=== PATIENT | male | born 1950 | race African-American/Black ===

== ENCOUNTER 2016-12-16 07:07 | Emergency (ER) | payer MEDICARE, OTHER ==
[~2016-12-16] VITALS: Ht 185.4 cm; Wt 81.6 kg
[2016-12-16 07:10] VITALS: BP 153/79
[2016-12-16] MEDS ORDERED: HYDR-971 PO (07:32)
--- NOTE | 2016-12-16 07:32 | PHYS DOC ---
Past Medical History Past Medical History: Anxiety, High Cholesterol, Hypertension, Other Additional Past Medical Histor: PTSD, MOOD DISORDER, CHRONIC PAIN Past Surgical History: Other Additional Past Surgical Histo: cardiac cath with no stent placement Alcohol Use: Heavy Drug Use: None Adult General Chief Complaint Chief Complaint: HIP PAIN HPI HPI Patient is a 66 year old male with a history of hypertension and PTSD, as well as chronic left hip pain presents the emergency room today with a complaint of ongoing left hip pain. Patient states that he was seen by his primary care provider at the [facility] 2 days ago received an injection in his hip. He states that the pain has been persistent and somewhat worse since that period of time. He denies any redness or swelling to his left hip. He denies any fevers, chills, myalgias. Patient was here approximately one year ago with the same complaint. He states that he has not seen an unattended ground sensor specialist as of yet for his ongoing left hip pain. Patient denies any additional concerns at this time. Review of Systems Review of Systems Constitutional: Denies fever or chills [] Eyes: Denies change in visual acuity, redness, or eye pain [] HENT: Denies nasal congestion or sore throat [] Respiratory: Denies cough or shortness of breath [] Cardiovascular: No additional information not addressed in HPI [] GI: Denies abdominal pain, nausea, vomiting, bloody stools or diarrhea [] : Denies dysuria or hematuria [] Musculoskeletal: Denies back pain or joint pain [] Integument: Denies rash or skin lesions [] Neurologic: Denies headache, focal weakness or sensory changes [] Endocrine: Denies polyuria or polydipsia [] Allergies Allergies Allergies Coded Allergies Type Severity Reaction Last Updated Verified trazodone Allergy Intermediate 01/18/16 Yes Physical Exam Physical Exam Constitutional: Well developed, well nourished, no acute distress, non-toxic appearance. Patient's physiologic vital signs are normal. HENT: Normocephalic, atraumatic, bilateral external ears normal, oropharynx moist, no oral exudates, nose normal. [] Eyes: PERRLA, EOMI, conjunctiva normal, no discharge. [] Neck: Normal range of motion, no tenderness, supple, no stridor. [] Cardiovascular:Heart rate regular rhythm, no murmur [] Lungs & Thorax: Bilateral breath sounds clear to auscultation [] Abdomen: Bowel sounds normal, soft, no tenderness, no masses, no pulsatile masses. [] Skin: Warm, dry, no erythema, no rash. [] Back: No tenderness, no CVA tenderness. [] Extremities: Left hip is normal in appearance. The overlying skin is without erythema or swelling. Patient's tenderness to palpation to the anterior lateral aspect of his left hip. There is no palpable defect or deformity. Patient's hip is stable. Patient complains of increased pain with circumduction. There is mild crepitation in the left hip upon circumduction. Flexion and extension is intact. Patient's left lower extremity is warm and dry. Neurovascularly intact with capillary refill less than 2 seconds in status. Neurologic: Alert and oriented X 3, normal motor function, normal sensory function, no focal deficits noted. [] Psychologic: Affect normal, judgement normal, mood normal. [] Current Patient Data Vital Signs Vital Signs Date Time Temp Pulse Resp B/P Pulse Ox O2 Delivery O2 Flow Rate FiO2 12/16/16 07:10 98.1 80 18 98 Room Air 98.1 EKG EKG [] Radiology/Procedures Radiology/Procedures [] Course & Med Decision Making Course & Med Decision Making Pertinent Labs and Imaging studies reviewed. (See chart for details) [] Dragon Disclaimer Dragon Disclaimer This electronic medical record was generated, in whole or in part, using a voice recognition dictation system. Departure Departure Impression: Primary Impression: Hip pain, chronic Disposition: 01 HOME, SELF-CARE Condition: GOOD Referrals: NO PCP (PCP) Patient Instructions: Chronic Pain, Osteoarthritis Additional Instructions: 1. Take the medication as prescribed. Do not take any additional acetaminophen while taking the pain medication. Take the pain medication only for moderate to severe pain. 2. Review the discharge instructions provided for self-care and reasons to return to the emergency department. 3. Follow-up with your primary care provider at the [facility] and discuss referral to orthopedic service for further evaluation of your hip pain. Scripts Hydrocodone/Apap 5-325 ([place] 5-325 Tablet)1 Each Tablet1 Tab PO PRN Q6HRS PRN PAIN #15 TAB Prov:KANDI COONEY 12/16/16 KANDI COONEY December 16, 2016 07:32
== END 2016-12-16 07:37 | disposition home or self-care (01) ==
LOC: ER 07:07
DX: G89.29 Other chronic pain (principal); M25.552 Pain in left hip; I10 Essential (primary) hypertension; F43.10 Post-traumatic stress disorder, unspecified; F41.9 Anxiety disorder, unspecified; E78.00 Pure hypercholesterolemia, unspecified; F39 Unspecified mood [affective] disorder; F10.10 Alcohol abuse, uncomplicated; Y90.9 Presence of alcohol in blood, level not specified; Z88.8 Allergy status to other drugs, medicaments and biological substances
CPT/HCPCS: 99283

== ENCOUNTER 2016-12-19 06:46 | Emergency (ER) | payer MEDICARE ==
[~2016-12-19] VITALS: Ht 185.4 cm; Wt 81.6 kg
[~2016-12-19 06:46] MED LIST: HYDR-971 PO
[2016-12-19] MEDS ORDERED: MORPHINE SULFATE 10 MG/ML VIAL. IM ONE (07:15)
[2016-12-19] MEDS ORDERED: KETOROLAC TROMETHAMINE 60 MG/2 ML INJ. IM ONE (07:15)
[2016-12-19] MEDS ORDERED: DEXAMETHASONE SOD PHOS 20 MG/5 ML VIAL. IM ONE (07:15)
[2016-12-19] MEDS ORDERED: METH4TAB2 PO (07:24)
--- NOTE | 2016-12-19 07:25 | PHYS DOC ---
Past Medical History Past Medical History: Anxiety, High Cholesterol, Hypertension, Other Additional Past Medical Histor: PTSD, MOOD DISORDER, CHRONIC PAIN Past Surgical History: Other Additional Past Surgical Histo: cardiac cath with no stent placement Alcohol Use: Heavy Drug Use: None Adult General Chief Complaint Chief Complaint: HIP PAIN HPI HPI Patient is a 66 year old male with history of hypertension, high cholesterol, anxiety, chronic left hip pain, who presents today with exacerbation of chronic left hip pain since yesterday. Patient states yesterday he went to a baseball game. He states he walked for quite some time. Patient states when he got home he had exacerbation of his chronic left hip pain. He states he was seen at the [place] at the beginning of the week and joint injection in his hip. He states he was in the ED 3 days ago for hip pain and was given hydrocodone for pain. He states the hydrocodone is not helping. Patient states he has an appointment with the [place] orthopedic doctor on 04 Jan 2017. Patient denies any injury. Review of Systems Review of Systems Constitutional: Denies fever or chills [] Eyes: Denies change in visual acuity, redness, or eye pain [] : Denies dysuria or hematuria [] Musculoskeletal: Left hip pain Integument: Denies rash or skin lesions [] Neurologic: Denies headache, focal weakness or sensory changes [] Endocrine: Denies polyuria or polydipsia [] Current Medications Current Medications Current Medications Medications (Trade) Dose Ordered Sig/Taiwo Start Time Stop Time Status Last Admin Dose Admin Dexamethasone Sodium Phosphate (Decadron) 10 mg 1X ONCE 12/19/16 07:15 12/19/16 07:16 UNV Ketorolac Tromethamine (Toradol Im) 60 mg 1X ONCE 12/19/16 07:15 12/19/16 07:16 UNV Morphine Sulfate 5 mg 1X ONCE 12/19/16 07:15 12/19/16 07:16 UNV Allergies Allergies Allergies Coded Allergies Type Severity Reaction Last Updated Verified trazodone Allergy Intermediate 01/18/16 Yes Physical Exam Physical Exam Constitutional: Well developed, well nourished, no acute distress, non-toxic appearance. [] HENT: Normocephalic, atraumatic, bilateral external ears normal, oropharynx moist, no oral exudates, nose normal. [] Eyes: PERRLA, EOMI, conjunctiva normal, no discharge. [] Abdomen: Bowel sounds normal, soft, no tenderness, no masses, no pulsatile masses. [] Skin: Warm, dry, no erythema, no rash. [] Back: No tenderness, no CVA tenderness. [] Extremities: Left hip with no obvious deformity. Tenderness diffusely on palpation of the left posterior hip. Full range of motion to the left hip. Adequate internal rotation and external rotation of the left hip. Adequate flexion and extension of the left lower extremity. +2 left pedal pulse. Cap refill less than 2 seconds the left lower extremity. Sensation intact to the left lower extremity. Neurologic: Alert and oriented X 3, normal motor function, normal sensory function, no focal deficits noted. [] Psychologic: Affect normal, judgement normal, mood normal. [] Current Patient Data Vital Signs Vital Signs Date Time Temp Pulse Resp B/P (MAP) Pulse Ox O2 Delivery O2 Flow Rate FiO2 12/19/16 07:05 97.2 80 18 181/87 (118) 100 Room Air 97.2 EKG EKG [] Radiology/Procedures Radiology/Procedures [] Course & Med Decision Making Course & Med Decision Making Pertinent Labs and Imaging studies reviewed. (See chart for details) Patient is in the ED with exacerbation of chronic left hip pain. He'll be given Toradol, morphine, and Decadron IM in the ED. He has pain medicine at home. Gave him a prescription of Medrol Dosepak. Follow-up with his own doctor as soon as he can. Dragon Disclaimer Dragon Disclaimer This electronic medical record was generated, in whole or in part, using a voice recognition dictation system. Departure Departure Impression: Primary Impression: Hip pain, chronic Disposition: 01 HOME, SELF-CARE Condition: STABLE Referrals: NO PCP (PCP) MARQUES PIERCE MD Follow-up in one week Patient Instructions: Hip Pain Additional Instructions: You were seen for exacerbation of chronic hip pain. Please take the prescribed medicines as ordered. Continue taking your hydrocodone at home as needed as well as an [facility] Follow-up with your doctor at the [place] as soon as possible or the doctor we provide. He is an orthopedic doctor. Scripts Methylprednisolone (MEDROL) 4 Mg Tab.ds.pk 1 PKG PO UD, #1 PKG Prov: HERVE SAHU METER TECHNICIAN 12/19/16 Problem Qualifiers Primary Impression: Hip pain, chronic Laterality: left Qualified Codes: M25.552 - Pain in left hip; G89.29 - Other chronic pain HERVE SAHU APRN December 19, 2016 07:25
[2016-12-19 08:20] VITALS: BP 158/80
[2016-12-20] MEDS ORDERED: QUET25TA5 PO (22:27)
[2016-12-20] MEDS ORDERED: MELO-156 PO (22:27)
[2016-12-20] MEDS ORDERED: OMEP20TA PO (22:27)
[2016-12-20] MEDS ORDERED: LISI-334 PO (22:27)
[2016-12-20] MEDS ORDERED: AMLO10TA2 PO (22:27)
[2016-12-20] MEDS ORDERED: MULT1CAP15 PO (22:27)
== END 2016-12-19 08:20 | disposition home or self-care (01) ==
LOC: ER 06:46
DX: G89.29 Other chronic pain (principal); M25.552 Pain in left hip; F41.9 Anxiety disorder, unspecified; E78.00 Pure hypercholesterolemia, unspecified; I10 Essential (primary) hypertension; F43.10 Post-traumatic stress disorder, unspecified; F10.10 Alcohol abuse, uncomplicated; Z88.5 Allergy status to narcotic agent
CPT/HCPCS: 96372; 99284; J1100; J1885; J2270

== ENCOUNTER 2016-12-20 16:06 | Inpatient (IN) | payer MEDICARE ==
[~2016-12-20] VITALS: Ht 185.4 cm; Wt 82.3 kg
[~2016-12-20 16:06] MED LIST changes: +METH4TAB2 PO
[2016-12-20 17:03] LABS: BASO % 0 % (0-3); EOS % 0 % (0-3); HEMATOCRIT 30.9 % (39.0-53.0); HEMOGLOBIN 10.3 g/dL (13.0-17.5); LYMPH # 1.4 x10^3/uL (1.0-4.8); LYMPH % 9 % (24-48); MEAN CORPUSCULAR HEMOGLOBIN 27 pg (25-35); MEAN CORPUSCULAR HGB CONC 33 g/dL (31-37); MEAN CORPUSCULAR VOLUME 82 fL (79-100); MONO % 7 % (0-9); NEUT % 84 % (31-73); PLATELET COUNT 282 x10^3/uL (140-400); RED BLOOD COUNT 3.78 x10^6/uL (4.30-5.70); RED CELL DISTRIBUTION WIDTH 16.3 % (11.5-14.5); WHITE BLOOD COUNT 15.1 x10^3/uL (4.0-11.0)
[2016-12-20] MEDS ORDERED: IV NORMAL SALINE 1000ML BAG 1,000 ML IV SCH (17:15)
[2016-12-20 17:22] LABS: PLT ESTIMATE ADEQUATE (ADEQUATE); POLYCHROMASIA SLIGHT
[2016-12-20 17:39] LABS: ALBUMIN 3.5 g/dL (3.4-5.0); CALCIUM 8.3 mg/dL (8.5-10.1); CREATININE 2.4 mg/dL (0.7-1.3); DIRECT BILIRUBIN 0.2 mg/dL (0.0-0.2); MAGNESIUM 2.1 mg/dL (1.8-2.4); TOTAL BILIRUBIN 0.6 mg/dL (0.2-1.0); TOTAL PROTEIN 7.1 g/dL (6.4-8.2)
[2016-12-20 17:47] LABS: POTASSIUM 6.5 mmol/L (3.5-5.1)
[2016-12-20] MEDS ORDERED: SODIUM POLYSTYRENE SULFONATE 15 GM/60 ML ORAL.SUSP. PO ONE (18:15)
--- NOTE | 2016-12-20 20:23 | PHYS DOC ---
Past Medical History Past Medical History: Anxiety, High Cholesterol, Hypertension, Other Additional Past Medical Histor: PTSD, MOOD DISORDER, CHRONIC PAIN Past Surgical History: Other Additional Past Surgical Histo: cardiac cath with no stent placement Alcohol Use: Heavy Drug Use: None Adult General Chief Complaint Chief Complaint: DIZZY/LIGHT HEADED HPI HPI Patient is a 66 year old male who presents to the ED with the complaint of dizzy, weak, and low blood pressure. Patient states that about 1 or 1-1/2 weeks ago, his doctor put him on amlodipine for blood pressure. He has been taking lisinopril for hypertension for a long time and has not had any problems with it. Over the last few weeks, he is been suffering from hip pain, it's unclear to me whether he has sciatica or some type of DJD problem in his hip. When he saw his doctor about 1-1/2 weeks ago for a visit, he is his hip was bothering him a lot. His blood pressure was elevated and his doctor added amlodipine to his regimen. He began taking this as prescribed and took a dose of his antihypertensives this morning sometime before noon. He was seen here yesterday with hip pain and was given a prescription for Medrol Dosepak and [place] which he has been taking, states that his hip pain is much better today. Ever since he got up this morning, he is been dizzy. His checked his blood pressure a few times and he brings in a record of several blood pressures with systolics in the 90-100 range. He said that's low for him. He denies chest pain, shortness of air, denies vomiting or diarrhea, denies any blood in his stool or black stools. He has not had any other new medications other than those mentioned above. He's never had an episode like this before. He denies history of slow heart rate or atrial fibrillation. Review of Systems Review of Systems Constitutional: Denies fever or chills [] Eyes: Denies change in visual acuity, redness, or eye pain [] HENT: Denies nasal congestion or sore throat [] Respiratory: Denies cough or shortness of breath [] Cardiovascular: Denies chest pain GI: Denies abdominal pain, nausea, vomiting, bloody stools or diarrhea [] : Denies dysuria or hematuria [] Musculoskeletal: Denies back pain or joint pain [] Integument: Denies rash or skin lesions [] Neurologic: Denies headache, focal weakness or sensory changes [] Current Medications Current Medications Current Medications Medications (Trade) Dose Ordered Sig/Taiwo Start Time Stop Time Status Last Admin Dose Admin Sodium Polystyrene Sulfonate (Kayexalate) 15 gm 1X ONCE 12/20/16 18:15 12/20/16 18:16 DC 12/20/16 18:27 15 GM Sodium Chloride 1,000 ml @ 1,000 mls/hr Q1H 12/20/16 17:15 12/20/16 18:14 DC 12/20/16 17:14 1,000 MLS/HR Allergies Allergies Allergies Coded Allergies Type Severity Reaction Last Updated Verified trazodone Allergy Intermediate 01/18/16 Yes Physical Exam Physical Exam Constitutional: Well developed, well nourished, no acute distress, non-toxic appearance. Alert, mentating normally, does not appear clinically hypotensive. HENT: Normocephalic, atraumatic, bilateral external ears normal, nose normal. [ ] Eyes: conjunctiva normal, no discharge. [] Neck: Normal range of motion, no stridor. [] Cardiovascular:Heart rate regular bradycardia approximately 40, no murmur Lungs & Thorax: Bilateral breath sounds clear to auscultation [] Abdomen: Bowel sounds normal, soft, no tenderness, no masses, no pulsatile masses. [] Skin: Warm, dry, no erythema, no rash. [] Extremities: No tenderness, no cyanosis, no clubbing, ROM intact, no edema. [] Neurologic: Alert and oriented X 3, normal motor function, normal sensory function, no focal deficits noted. [] Current Patient Data Vital Signs Vital Signs Date Time Temp Pulse Resp B/P (MAP) Pulse Ox O2 Delivery O2 Flow Rate FiO2 12/20/16 20:00 42 108/62 (77) 97 Room Air 12/20/16 16:17 98.0 18 98.0 Lab Values Laboratory Tests Test 12/20/16 16:35 White Blood Count 15.1 x10^3/uL (4.0-11.0) H Red Blood Count 3.78 x10^6/uL (4.30-5.70) L Hemoglobin 10.3 g/dL (13.0-17.5) L Hematocrit 30.9 % (39.0-53.0) L Mean Corpuscular Volume 82 fL (79-100) Mean Corpuscular Hemoglobin 27 pg (25-35) Mean Corpuscular Hemoglobin Concent 33 g/dL (31-37) Red Cell Distribution Width 16.3 % (11.5-14.5) H Platelet Count 282 x10^3/uL (140-400) Neutrophils (%) (Auto) 84 % (31-73) H Lymphocytes (%) (Auto) 9 % (24-48) L Monocytes (%) (Auto) 7 % (0-9) Eosinophils (%) (Auto) 0 % (0-3) Basophils (%) (Auto) 0 % (0-3) Neutrophils # (Auto) 12.7 x10^3uL (1.8-7.7) H Lymphocytes # (Auto) 1.4 x10^3/uL (1.0-4.8) Monocytes # (Auto) 1.0 x10^3/uL (0.0-1.1) Eosinophils # (Auto) 0.0 x10^3/uL (0.0-0.7) Basophils # (Auto) 0.0 x10^3/uL (0.0-0.2) Segmented Neutrophils % 73 % (35-66) H Band Neutrophils % 3 % (0-9) Lymphocytes % 17 % (24-48) L Monocytes % 7 % (0-10) Platelet Estimate Adequate (ADEQUATE) Polychromasia Slight Sodium Level 117 mmol/L (136-145) *L Potassium Level 6.5 mmol/L (3.5-5.1) *H Chloride Level 86 mmol/L (98-107) L Carbon Dioxide Level 23 mmol/L (21-32) Anion Gap 8 (6-14) Blood Urea Nitrogen 29 mg/dL (8-26) H Creatinine 2.4 mg/dL (0.7-1.3) H Estimated GFR (Cockcroft-Gault) 33.0 Glucose Level 126 mg/dL (70-99) H Calcium Level 8.3 mg/dL (8.5-10.1) L Magnesium Level 2.1 mg/dL (1.8-2.4) Total Bilirubin 0.6 mg/dL (0.2-1.0) Direct Bilirubin 0.2 mg/dL (0.0-0.2) Aspartate Amino Transferase (AST) 26 U/L (15-37) Alanine Aminotransferase (ALT) 29 U/L (16-63) Alkaline Phosphatase 59 U/L (46-116) Troponin I Quantitative < 0.017 ng/mL (0.000-0.055) UE-Wyd-A-Type Natriuretic Peptide 2216 pg/mL (0-124) H Total Protein 7.1 g/dL (6.4-8.2) Albumin 3.5 g/dL (3.4-5.0) Laboratory Tests 12/20/16 16:35 Laboratory Tests 12/20/16 16:35 EKG EKG Twelve-lead EKG read by me. There are no P waves. The rhythm is regular. It is likely junctional. It is narrow complex. There are no acute ST or T wave changes indicative of ischemia or infarction. No STEMI. [] Radiology/Procedures Radiology/Procedures [] Course & Med Decision Making Course & Med Decision Making Pertinent Labs and Imaging studies reviewed. (See chart for details) 66-year-old male presents with weakness, hypotension, bradycardia. He did recently start amlodipine about 1 or 1-1/2 weeks ago. Labs remarkable for significant hyponatremia, hyperkalemia, elevated creatinine. I do not know his baseline, he usually gets his medical care at the [place]. His potassium is 6.5 which I'm not sure would cause a junctional rhythm but I did treat him with IV fluids, normal saline, and oral Kayexalate. Patient rested comfortably in the emergency department. He remained bradycardic approximately 38 but he was alert, mentating normally, without complaints while laying in the ED on the cart. I discussed admission to the hospital with him and he is agreeable to that. I discussed the case with Dr. Campos, [facility], who will admit the patient. I wrote bridge orders. She requested a consult with Dr. Juárez, cardiology. Also a consult with nephrology. I discussed the case with Dr. Juárez, who suggested that we give him some more fluids and also IV Lasix for the hyperkalemia, which was done. The patient remained stable and went to the ICU in stable and unchanged condition. [] Dragon Disclaimer Dragon Disclaimer This electronic medical record was generated, in whole or in part, using a voice recognition dictation system. Departure Departure Impression: Primary Impression: Bradycardia Additional Impression: Hyperkalemia Disposition: 09 ADMITTED INPATIENT Admitting Physician: Shu Campos Condition: STABLE Referrals: NO PCP (PCP) Problem Qualifiers VERN PIPER MD December 20, 2016 20:23
[2016-12-20] MEDS ORDERED: IV NORMAL SALINE 1000ML BAG 1,000 ML IV ONE (20:30)
[2016-12-20] MEDS ORDERED: FUROSEMIDE 40 MG/4 ML VIAL. IVP ONE (20:30)
[2016-12-20 21:32] LABS: CALCIUM 7.7 mg/dL (8.5-10.1); CREATININE 2.3 mg/dL (0.7-1.3); GFR 34.7
--- NOTE | 2016-12-20 21:32 | ACF ---
Admission Forms Criteria HYPONATREMIA; HYPERNATREMIA; HYPOKALEMIA; HYPERKALEMIA; HYPOCALCEMIA; HYPERCALCEMIA Clinical Indications for Inpatient Care (Place 'X' for any and all applicable criteria): Ongoing inpatient care may be indicated for ANY ONE of the following [G](1)(2)(3 )(5): [X ]I. Hyponatremia with ANY ONE of the following: [X ]a) Sodium less than 130 mEq/L (mmol/L) (new) (6)(22) [ ]b) Sodium less than 135 mEq/L (mmol/L) with ANY ONE of the following: [ ]i) Severe medical etiology requiring inpatient management (eg, heart failure, hypovolemia) [ ]ii) Altered mental status [ ]iii) Seizures [ ]II. Hypernatremia with ANY ONE of the following: [ ]a) Sodium greater than 155 mEq/L (mmol/L) [ ]b) Sodium greater than 150 mEq/L (mmol/L) with ANY ONE of the following: [ ] i) Altered mental status [ ]ii) Seizures [ ]iii) Severe medical etiology (eg, hypovolemia, diabetes insipidus) [ ]iv) Severe weakness [ ]v) Severe medical etiology (eg, hemolysis, infection, drug overdose) [ ]III. Hypokalemia with ANY ONE of the following: [ ]a) Potassium less than 2.5 mEq/L (mmol/L) despite outpatient and emergency treatment [ ]b) Potassium less than 3.0 mEq/L (mmol/L) with ANY ONE of the following: [ ]i) Weakness [ ]ii) Cardiac abnormality (eg, arrhythmia, conduction disturbance) [ ]iii) Cardiac ischemia [ ]iv) Ileus [ ]v) Ongoing medical cause requiring inpatient management. ( e.g., acute renal wasting, SIADH) [ ]vi) Other severe symptoms [ ] IV. Hyperkalemia with ANY ONE of the following: [ ]a) Potassium greater than 6.5 mEq/L (mmol/L) [ ]b) Potassium greater than 5 mEq/L (mmol/L) with ANY ONE of the following: [ ]i) Severe ECG findings [H] [ ]ii) Acute worsening of renal failure (creatinine greater than 2.5 mg/dL (221 micromoles/L) or significant elevation for age and size) [ ] V. Hypocalcemia with ANY ONE of the following: [ ]a) Calcium less than 7 mg/dL (1.75 mmol/L) despite outpatient and emergency treatment(19) [ ]b) Calcium less than 8 mg/dL (2 mmol/L) with significant symptoms or findings; examples include: [ ]i) Cardiac abnormality (eg, arrhythmia or conduction disturbance) [ ]ii) Altered mental status [ ]iii) Seizures [ ]iv) Breathing difficulty [ ]v) Muscle spasms [ ]. Hypercalcemia with ANY ONE of the following: [ ]a) Calcium greater than 14 mg/dL (3.5 mmol/L) [ ]b) Calcium greater than 12 mg/dL (3 mmol/L) with ANY ONE of the following: [ ]i) Significant dehydration or hypovolemia as indicated by ANY ONE of the following(2): [ ]1. Clinically significant dehydration as indicated by ANY ONE of the following: [ ]A. Acute loss of weight from baseline (5% of body weight in adults, 9% in pediatric patients) [ ]B. Hemodynamic instability [ ]C. Acute renal failure [ ]D. Serum sodium greater than 150 mEq/L (mmol/L) [ ]2) Dehydration that is persistent indicated by ALL of the following: [ ]A. Oral rehydration therapy not tolerated or insufficient to adequately correct dehydration [ ]B. Appropriate intravenous treatment (eg, fluids ) does not readily correct dehydration ie, after 12 to 24 hours of treatment) [ ]ii) Significant symptoms or findings; examples include: [ ]1) Altered mental status [ ]2) Cardiac abnormality (eg, arrhythmia, conduction disturbance) [ ]3) Cardiac abnormality (eg, arrhythmia, conduction disturbance) The original [facility] content created by [facility] has been revised. The portions of the content which have been revised are identified through the use of italic text or in bold, and [facility] has neither reviewed nor approved the modified material. All other unmodified content is copyright [facility] [employer] Please see references footnoted in the original [facility] [employer] edition 2016 Admission Criteria Met?: Yes ULISSES LEPE December 20, 2016 21:32
[2016-12-20 21:41] LABS: POTASSIUM 6.1 mmol/L (3.5-5.1)
[2016-12-20 21:45] VITALS: BP 156/75
[2016-12-20 22:00] VITALS: BP 141/67
[2016-12-20 22:15] VITALS: BP 130/62
[2016-12-20] MEDS ORDERED: MELO-156 PO (22:27)
[2016-12-20] MEDS ORDERED: OMEP20TA PO (22:27)
[2016-12-20] MEDS ORDERED: MULT1CAP15 PO (22:27)
[2016-12-20] MEDS ORDERED: QUET25TA5 PO (22:27)
[2016-12-20] MEDS ORDERED: LISI-334 PO (22:27)
[2016-12-20] MEDS ORDERED: AMLO10TA2 PO (22:27)
[2016-12-20 22:30] VITALS: BP 120/75
[2016-12-20 22:45] VITALS: BP 135/77
[2016-12-20 23:00] VITALS: BP 128/71
[2016-12-21] VITALS (14 sets, daily range): BP systolic 109–150; BP diastolic 57–78
[2016-12-21 06:14] LABS: CALCIUM 8.7 mg/dL (8.5-10.1); CREATININE 1.9 mg/dL (0.7-1.3); GFR 43.3; POTASSIUM 5.3 mmol/L (3.5-5.1)
--- NOTE | 2016-12-21 06:35 | EKG ---
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 Electronically Signed On 12-28-2016 8:47:55 CDT by Doyle Salvador
--- NOTE | 2016-12-21 07:13 | RAD ---
Indication: Hypertension and bradycardia. Time of exam 1704 hours. Correlation is made with prior chest from 02/29/2012. The heart is enlarged. Tiny calcified nodules are seen again noted throughout both lungs. No infiltrates are seen. No effusion or pneumothorax is detected. Impression: No acute cardiopulmonary process is detected.
[2016-12-21 09:23] LABS: BILIRUBIN,URINE NEGATIVE (NEG); GLUCOSE,URINE NEGATIVE (NEG); NITRITE,URINE NEGATIVE (NEG); PROTEIN,URINE 30 mg/dL (NEG-TRACE); UROBILINOGEN,URINE 0.2 mg/dL (0.2 mg/dL)
[2016-12-21] MEDS ORDERED: 0.9 % SODIUM CHLORIDE 10 ML DISP.SYRIN. IV PRN (09:30)
[2016-12-21] MEDS ORDERED: CITA20TA9 PO (09:38)
[2016-12-21 09:48] LABS: BACTERIA,URINE 0 /HPF (0-FEW); RBC,URINE 0 /HPF (0-2); SQUAMOUS EPITHELIAL CELL,UR OCC /LPF; WBC,URINE OCC /HPF (0-4)
[2016-12-21] MEDS ORDERED: NICOTINE POLACRILEX 2MG GUM PACKAGE of 12. BC PRN (10:15)
[2016-12-21] MEDS ORDERED: NON FORMULARY ITEM (Methylprednisolone (Medrol) 1 PKG) PO SCH (10:15)
[2016-12-21] MEDS ORDERED: MORPHINE SULFATE 2 MG/ML DISP.SYRIN. IV ONE (10:45)
[2016-12-21] MEDS ORDERED: MORPHINE SULFATE 2 MG/ML DISP.SYRIN. IM ONE (10:45)
[2016-12-21] MEDS: IV NORMAL SALINE 1000ML BAG 1,000 ML IV SCH ×2 (10:48→22:22)
[2016-12-21] MEDS: methylPREDNISolone 4 MG TABLET. PO SCH ×3 (10:49→17:53)
[2016-12-21] MEDS: PANTOPRAZOLE 40 MG TABLET.DR. PO SCH (10:49)
[2016-12-21] MEDS: MELOXICAM 7.5 MG TABLET PO SCH ×2 (10:49→20:36)
[2016-12-21] MEDS: MULTIVITAMIN I-VITE TABLET. PO SCH (10:49)
[2016-12-21] MEDS: CITALOPRAM 20 MG TABLET. PO SCH (10:50)
[2016-12-21] MEDS: HYDROcodone/APAP 5/325MG 1 TAB TABLET PO PRN ×2 (10:50→17:53)
[2016-12-21] MEDS: LISINOPRIL 20 MG TABLET PO SCH (10:50)
--- NOTE | 2016-12-21 11:32 | RAD ---
Indication: Indication: Abnormal metabolic profile. Axial imaging through the chest was performed without intravenous contrast. No prior studies are available for comparison. No axillary lymphadenopathy is seen. There are calcified lymph nodes in the mediastinum and mel likely from prior granulomatous exposure. No pericardial fluid is identified. There is trace left and small right pleural effusion. Innumerable calcified nodules are identified throughout both lungs consistent with granulomas. Multiple patchy groundglass opacities are noted within bilateral upper lobes, greatest on the left. The lower lobes are unremarkable apart from some mild infiltrate or atelectasis posteriorly in the right lower lobe. The upper abdomen is unremarkable. Impression: Patchy groundglass infiltrates are identified bilateral upper lobes. This likely is on an infectious or inflammatory basis. There are also trace left and small right pleural effusions. PQRS Compliance Statement: One or more of the following individualized dose reduction techniques were utilized for this examination: 1. Automated exposure control 2. Adjustment of the mA and/or kV according to patient size 3. Use of iterative reconstruction technique
--- NOTE | 2016-12-21 11:50 | HP ---
ADMIT DATE: 12/21/16 CHIEF COMPLAINT: Dizziness. HISTORY OF PRESENT ILLNESS: The patient is a 66-year-old -[place] gentleman with past medical history of hypertension and osteoarthritis, who presented to the Emergency Room with sudden onset of dizziness, lightheadedness, and unsteady gait. He relates that he actually was not only at the [facility], but also at the Emergency Room here in the past week with severe left-sided hip pain. With his visit in the ER yesterday, he received Medrol Dosepak and [place], which seemed to address the pain fairly decently. His electrolytes have been checked during his visit. He relates that about 10 days ago, he also started on a new blood pressure medication, Norvasc. He denies any lightheadedness, dizziness before yesterday, but is convinced that Norvasc is at the root of all his issues. In the Emergency Room, he was found with a sodium of 117, potassium at 6.5, creatinine at 2.4 and he was promptly admitted. He received IV fluids, Kayexalate as well as Lasix to address his electrolyte imbalances. Potassium improved to 6.1. In addition, he was found bradycardic in a junctional rhythm, which was attributed to the hyperkalemia. He was admitted to the ICU for further monitoring. PAST MEDICAL HISTORY: Hypertension and osteoarthritis. FAMILY HISTORY: Hypertension, osteoarthritis. Denies any heart disease, denies any kidney disease known in the family. SOCIAL HISTORY: Lives with his , smokes about a pack a day since age 24. Admits to 1 bottle of wine a day. Denies any other drugs. ALLERGIES: TRAZODONE, UNKNOWN REACTION and he denies any allergies. HOME MEDICATIONS: Reconciled with MAR. REVIEW OF SYSTEMS: Lightheadedness/dizziness, now has resolved. He feels perfectly fine and is eager to leave the hospital. PHYSICAL EXAMINATION: VITAL SIGNS: From today show a blood pressure of 141/71, heart rate of 74, respiratory rate at 23. He is afebrile. GENERAL: This is a well-nourished, well-developed, 66-year-old, -[place] gentleman, alert and oriented, in no acute distress. HEENT: Shows no scleral icterus. NECK: Supple, without any lymphadenopathy. LUNGS: Clear to auscultation bilaterally. HEART: Regular rate and rhythm. ABDOMEN: Has positive bowel sounds, soft, nontender. EXTREMITIES: Show no edema. SKIN: Warm, soft and dry without any rash. LABORATORY DATA: CBC with a WBC of 15.1, hemoglobin 10.3, MCV at 82, platelets of 282. Chemistries with a BUN and creatinine currently at 27 and 1.9, at admission 29 and 2.4, sodium of 125 (at admission, 117), potassium 5.3 (6.5), calcium at 8.7. LFTs at admission within normal limits. IMAGING: Chest x-ray shows no acute cardiopulmonary process. ASSESSMENT AND PLAN: The patient is a 66-year-old, -[place], gentleman presenting with hyponatremia, severe as well as hyperkalemia, severe and resulting bradycardia with junctional rhythm. Etiology of abnormality is unclear at this point. With what appears to be [id number] renal insufficiency, we will obtain a consult with a Nephrology (Dr. Ortiz). Cardiology, Dr. Juárez, has been consulted as well. 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 We will continue normal saline drip for the time being. We will obtain additional labs including TSH, lipid profile for cardiology evaluation as well. We will continue his home medications, Norvasc to be added in his hypertension resumes. We will obtain a CT of the chest and echocardiogram to help evaluate cardiac and pulmonary function and rule out potential malignancy as etiology of SIADH. Prophylaxis will be instituted with H2 ruth and heparin. For his substance abuse including tobacco and alcohol, he prefers nicotine gum over patch. We will also start him on Ativan prevention protocol. DIANNA KURTZ MD DR: BLANK/nts JOB#: [id number] / [id number] [place]
[2016-12-21 13:37] LABS: CALCIUM 9.2 mg/dL (8.5-10.1); CREATININE 1.6 mg/dL (0.7-1.3); GFR 52.8; POTASSIUM 4.8 mmol/L (3.5-5.1)
--- NOTE | 2016-12-21 16:04 | PDOC2 ---
CONSULT Date of Consult Date of Consult DATE: 12/21/16 TIME: 15:56 Reason for Consult Reason for Consult: TAMI Referring Physician Referring Physician: JOSEPH Identification/Chief Complaint Chief Complaint THIS IS A 66 YR OLD ADMITTED WITH FEELING POORLY. HE STATES THAT HE FELT DIZZY. ON ADMIT HE IS NOTED TO HAVE HYPONATREMIA, HYPERKALEMIA AND TAMI WITH A CR OF 2.4. NO CKD HX IS REPORTED. HE IS ALSO NOTED TO HAVE BRADYCARDIA. HIS K WAS 6.5 AND HIS NA WAS 117 Source Source: Chart review, Patient History of Present Illness Reason for Visit: ABOVE Past Medical History Cardiovascular: HTN Musculoskeletal: Osteoarthritis Family History Family History: Hypertension Social History 1 pack per day ALCOHOL: heavy Drugs: None Lives: with Family Current Problem List Problem List Problems Medical Problems: (1) Bradycardia Status: Acute (2) Hyperkalemia Status: Acute Current Medications Current Medications Current Medications Sodium Chloride 1,000 ml @ 1,000 mls/hr Q1H IV Last administered on 12/20/16 17:14; Start 12/20/16 at 17:15; Stop 12/20/16 at 18:14; Status DC Sodium Polystyrene Sulfonate (Kayexalate) 15 gm 1X ONCE PO Last administered on 12/20/16 18:27; Start 12/20/16 at 18:15; Stop 12/20/16 at 18:16; Status DC Sodium Chloride 1,000 ml @ 1,000 mls/hr 1X ONCE IV Last administered on 20:26; Start 12/20/16 at 20:30; Stop 12/20/16 at 21:29; Status DC Furosemide (Lasix) 40 mg 1X ONCE IVP Last administered on 12/20/16 20:26; Start 12/20/16 at 20:30; Stop 12/20/16 at 20:31; Status DC Sodium Chloride (Normal Saline Flush) 3 ml QSHIFT PRN IV AFTER MEDS AND BLOOD DRAWS; Start 12/21/16 at 09:30 Citalopram Hydrobromide (CeleXA) 20 mg DAILY PO Last administered on 12/21/16 10:50; Start 12/21/16 at 11:00 Acetaminophen/ Hydrocodone Bitart (Lortab 5/325) 1 tab PRN Q6HRS PRN PO PAIN Last administered on 12/21/16 10:50; Start 12/21/16 at 10:15 Lisinopril (Prinivil) 20 mg DAILY PO Last administered on 12/21/16 10:50; Start 12/21/16 at 11:00 Meloxicam (Mobic) 7.5 mg BID PO Last administered on 12/21/16 10:49; Start 12/21 at 11:00 Quetiapine Fumarate (SEROquel) 25 mg HS PO ; Start 12/21/16 at 21:00 Non-Formulary Medication 1 pkg UD PO ; Start 12/21/16 at 10:15; Status UNV Pantoprazole Sodium (Protonix) 40 mg DAILYAC PO Last administered on 12/21/16 10:49; Start 12/21/16 at 11:00 Multivitamins/ Minerals (I-Anupam) 1 tab DAILY PO Last administered on 12/21/16 10:49; Start 12/21/16 at 11:00 Nicotine Polacrilex (Nicorette Gum) 1 each PRN Q2HR PRN BC SMOKING CESSATION; Start 12/21/16 at 10:15 Morphine Sulfate 1 mg 1X ONCE IM ; Start 12/21/16 at 10:45; Stop 12/21/16 at 10: 45; Status DC Sodium Chloride 1,000 ml @ 100 mls/hr Q10H IV Last administered on 12/21/16 10 :48; Start 12/21/16 at 10:15 Methylprednisolone (Medrol) 4 mg TIDPC PO Last administered on 12/21/16 13:02; Start 12/21/16 at 11:00; Stop 12/21/16 at 17:31 Methylprednisolone (Medrol) 8 mg QHS PO ; Start 12/21/16 at 21:00; Stop 12/21/16 at 21:01 Methylprednisolone (Medrol) 4 mg QIDAFTMEAL PO ; Start 12/22/16 at 09:00; Stop at 21:01 Methylprednisolone (Medrol) 4 mg TID PO ; Start 12/23/16 at 09:00; Stop at 21:01 Methylprednisolone (Medrol) 4 mg BID PO ; Start 12/24/16 at 09:00; Stop at 21:01 Methylprednisolone (Medrol) 4 mg DAILY PO ; Start 12/25/16 at 09:00; Stop at 09:01 Morphine Sulfate 1 mg 1X ONCE IV Last administered on 12/21/16t 10:48; Start at 10:45; Stop 12/21/16 at 10:46; Status DC Active Scripts Active Medrol (Methylprednisolone) 4 Mg Tab.ds.pk 1 Pkg PO UD Ragan 5-325 Tablet (Acetaminophen/Hydrocodone Bitart) 1 Each Tablet 1 Tab PO PRN Q6HRS PRN Reported Celexa (Citalopram Hydrobromide) 20 Mg Tablet 1 Tab PO DAILY Seroquel (Quetiapine Fumarate) 25 Mg Tablet 20 Mg PO HS Omeprazole 20 Mg Tablet.dr 1 Tab PO DAILY Amlodipine Besylate 10 Mg Tablet 10 Mg PO DAILY Lisinopril 20 Mg Tablet 1 Tab PO DAILY Meloxicam 7.5 Mg Tablet 7.5 Mg PO BID Multivitamins (Multivitamin) 1 Each Capsule 1 Each PO Allergies Allergies: Coded Allergies: trazodone (Verified Allergy, Intermediate, 01/18/16) ROS General: YES: Appetite PSYCHOLOGICAL ROS: YES: Anxiety Eyes: Yes Decreased vision HEENT: YES: Heacaches Respiratory: YES: Cough Gastrointestinal: Yes Constipation Genitourinary: YES Retention, YES Other (NOCTURIA) Musculoskeletal: Yes Muscular Weakness Physical Exam General: Alert, Oriented X3, Cooperative, No acute distress HEENT: Atraumatic, PERRLA Lungs: Clear to auscultation, Normal air movement Heart: Regular rate Abdomen: Soft, No tenderness Neuro: Normal speech, Cranial nerves 3-12 NL Psych/Mental Status: Mental status NL, Mood NL MUSCULOSKELETAL: No deformity Vitals VITALS Vital Signs Date Time Temp Pulse Resp B/P (MAP) Pulse Ox O2 Delivery O2 Flow Rate FiO2 12/21/16 12:30 95 Room Air 12/21/16 12:00 98.9 67 20 127/78 (94) 98.9 12/21/16 06:00 2.0 Labs Labs Laboratory Tests Test 12/20/16 16:16 12/20/16 16:35 12/20/16 20:40 12/20/16 22:13 Urine Collection Type Unknown Urine Color Yellow Urine Clarity Cloudy Urine pH 5.0 Urine Specific [place] 1.020 Urine Protein 30 mg/dL (NEG-TRACE) Urine Glucose (UA) Negative mg/dL (NEG) Urine Ketones (Stick) Negative mg/dL (NEG) Urine Blood Negative (NEG) Urine Nitrite Negative (NEG) Urine Bilirubin Negative (NEG) Urine Urobilinogen Dipstick 0.2 mg/dL (0.2 mg/dL) Urine Leukocyte Esterase Negative (NEG) Urine RBC 0 /HPF (0-2) Urine WBC Occ /HPF (0-4) Urine Squamous Epithelial Cells Occ /LPF Urine Bacteria 0 /HPF (0-FEW) Urine Hyaline Casts Many /HPF Urine Mucus Slight /LPF White Blood Count 15.1 x10^3/uL (4.0-11.0) Red Blood Count 3.78 x10^6/uL (4.30-5.70) Hemoglobin 10.3 g/dL (13.0-17.5) Hematocrit 30.9 % (39.0-53.0) Mean Corpuscular Volume 82 fL (79-100) Mean Corpuscular Hemoglobin 27 pg (25-35) Mean Corpuscular Hemoglobin Concent 33 g/dL (31-37) Red Cell Distribution Width 16.3 % (11.5-14.5) Platelet Count 282 x10^3/uL (140-400) Neutrophils (%) (Auto) 84 % (31-73) Lymphocytes (%) (Auto) 9 % (24-48) Monocytes (%) (Auto) 7 % (0-9) Eosinophils (%) (Auto) 0 % (0-3) Basophils (%) (Auto) 0 % (0-3) Neutrophils # (Auto) 12.7 x10^3uL (1.8-7.7) Lymphocytes # (Auto) 1.4 x10^3/uL (1.0-4.8) Monocytes # (Auto) 1.0 x10^3/uL (0.0-1.1) Eosinophils # (Auto) 0.0 x10^3/uL (0.0-0.7) Basophils # (Auto) 0.0 x10^3/uL (0.0-0.2) Segmented Neutrophils % 73 % (35-66) Band Neutrophils % 3 % (0-9) Lymphocytes % 17 % (24-48) Monocytes % 7 % (0-10) Platelet Estimate Adequate (ADEQUATE) Polychromasia Slight Sodium Level 117 mmol/L (136-145) 120 mmol/L (136-145) Potassium Level 6.5 mmol/L (3.5-5.1) 6.1 mmol/L (3.5-5.1) Chloride Level 86 mmol/L (98-107) 89 mmol/L (98-107) Carbon Dioxide Level 23 mmol/L (21-32) 22 mmol/L (21-32) Anion Gap 8 (6-14) 9 (6-14) Blood Urea Nitrogen 29 mg/dL (8-26) 31 mg/dL (8-26) Creatinine 2.4 mg/dL (0.7-1.3) 2.3 mg/dL (0.7-1.3) Estimated GFR (Cockcroft-Gault) 33.0 34.7 Glucose Level 126 mg/dL (70-99) 119 mg/dL (70-99) Calcium Level 8.3 mg/dL (8.5-10.1) 7.7 mg/dL (8.5-10.1) Magnesium Level 2.1 mg/dL (1.8-2.4) Total Bilirubin 0.6 mg/dL (0.2-1.0) Direct Bilirubin 0.2 mg/dL (0.0-0.2) Aspartate Amino Transf (AST/SGOT) 26 U/L (15-37) Alanine Aminotransferase (ALT/SGPT) 29 U/L (16-63) Alkaline Phosphatase 59 U/L (46-116) Troponin I Quantitative < 0.017 ng/mL (0.000-0.055) ZG-Cra-F-Type Natriuretic Peptide 2216 pg/mL (0-124) Total Protein 7.1 g/dL (6.4-8.2) Albumin 3.5 g/dL (3.4-5.0) Nasal Screen MRSA (PCR) Negative (Negative) Test 12/21/16 05:35 12/21/16 13:15 Sodium Level 125 mmol/L (136-145) 129 mmol/L (136-145) Potassium Level 5.3 mmol/L (3.5-5.1) 4.8 mmol/L (3.5-5.1) Chloride Level 93 mmol/L (98-107) 95 mmol/L (98-107) Carbon Dioxide Level 24 mmol/L (21-32) 24 mmol/L (21-32) Anion Gap 8 (6-14) 10 (6-14) Blood Urea Nitrogen 27 mg/dL (8-26) 26 mg/dL (8-26) Creatinine 1.9 mg/dL (0.7-1.3) 1.6 mg/dL (0.7-1.3) Estimated GFR (Cockcroft-Gault) 43.3 52.8 Glucose Level 101 mg/dL (70-99) 121 mg/dL (70-99) Calcium Level 8.7 mg/dL (8.5-10.1) 9.2 mg/dL (8.5-10.1) Thyroid Stimulating Hormone (TSH) 0.338 uIU/mL (0.358-3.74) Laboratory Tests Test 12/20/16 16:16 12/20/16 16:35 12/20/16 20:40 12/20/16 22:13 Urine Collection Type Unknown Urine Color Yellow Urine Clarity Cloudy Urine pH 5.0 Urine Specific [place] 1.020 Urine Protein 30 mg/dL (NEG-TRACE) Urine Glucose (UA) Negative mg/dL (NEG) Urine Ketones (Stick) Negative mg/dL (NEG) Urine Blood Negative (NEG) Urine Nitrite Negative (NEG) Urine Bilirubin Negative (NEG) Urine Urobilinogen Dipstick 0.2 mg/dL (0.2 mg/dL) Urine Leukocyte Esterase Negative (NEG) Urine RBC 0 /HPF (0-2) Urine WBC Occ /HPF (0-4) Urine Squamous Epithelial Cells Occ /LPF Urine Bacteria 0 /HPF (0-FEW) Urine Hyaline Casts Many /HPF Urine Mucus Slight /LPF White Blood Count 15.1 x10^3/uL (4.0-11.0) Red Blood Count 3.78 x10^6/uL (4.30-5.70) Hemoglobin 10.3 g/dL (13.0-17.5) Hematocrit 30.9 % (39.0-53.0) Mean Corpuscular Volume 82 fL (79-100) Mean Corpuscular Hemoglobin 27 pg (25-35) Mean Corpuscular Hemoglobin Concent 33 g/dL (31-37) Red Cell Distribution Width 16.3 % (11.5-14.5) Platelet Count 282 x10^3/uL (140-400) Neutrophils (%) (Auto) 84 % (31-73) Lymphocytes (%) (Auto) 9 % (24-48) Monocytes (%) (Auto) 7 % (0-9) Eosinophils (%) (Auto) 0 % (0-3) Basophils (%) (Auto) 0 % (0-3) Neutrophils # (Auto) 12.7 x10^3uL (1.8-7.7) Lymphocytes # (Auto) 1.4 x10^3/uL (1.0-4.8) Monocytes # (Auto) 1.0 x10^3/uL (0.0-1.1) Eosinophils # (Auto) 0.0 x10^3/uL (0.0-0.7) Basophils # (Auto) 0.0 x10^3/uL (0.0-0.2) Segmented Neutrophils % 73 % (35-66) Band Neutrophils % 3 % (0-9) Lymphocytes % 17 % (24-48) Monocytes % 7 % (0-10) Platelet Estimate Adequate (ADEQUATE) Polychromasia Slight Sodium Level 117 mmol/L (136-145) 120 mmol/L (136-145) Potassium Level 6.5 mmol/L (3.5-5.1) 6.1 mmol/L (3.5-5.1) Chloride Level 86 mmol/L (98-107) 89 mmol/L (98-107) Carbon Dioxide Level 23 mmol/L (21-32) 22 mmol/L (21-32) Anion Gap 8 (6-14) 9 (6-14) Blood Urea Nitrogen 29 mg/dL (8-26) 31 mg/dL (8-26) Creatinine 2.4 mg/dL (0.7-1.3) 2.3 mg/dL (0.7-1.3) Estimated GFR (Cockcroft-Gault) 33.0 34.7 Glucose Level 126 mg/dL (70-99) 119 mg/dL (70-99) Calcium Level 8.3 mg/dL (8.5-10.1) 7.7 mg/dL (8.5-10.1) Magnesium Level 2.1 mg/dL (1.8-2.4) Total Bilirubin 0.6 mg/dL (0.2-1.0) Direct Bilirubin 0.2 mg/dL (0.0-0.2) Aspartate Amino Transf (AST/SGOT) 26 U/L (15-37) Alanine Aminotransferase (ALT/SGPT) 29 U/L (16-63) Alkaline Phosphatase 59 U/L (46-116) Troponin I Quantitative < 0.017 ng/mL (0.000-0.055) JF-Qja-Q-Type Natriuretic Peptide 2216 pg/mL (0-124) Total Protein 7.1 g/dL (6.4-8.2) Albumin 3.5 g/dL (3.4-5.0) Nasal Screen MRSA (PCR) Negative (Negative) Test 12/21/16 05:35 12/21/16 13:15 Sodium Level 125 mmol/L (136-145) 129 mmol/L (136-145) Potassium Level 5.3 mmol/L (3.5-5.1) 4.8 mmol/L (3.5-5.1) Chloride Level 93 mmol/L (98-107) 95 mmol/L (98-107) Carbon Dioxide Level 24 mmol/L (21-32) 24 mmol/L (21-32) Anion Gap 8 (6-14) 10 (6-14) Blood Urea Nitrogen 27 mg/dL (8-26) 26 mg/dL (8-26) Creatinine 1.9 mg/dL (0.7-1.3) 1.6 mg/dL (0.7-1.3) Estimated GFR (Cockcroft-Gault) 43.3 52.8 Glucose Level 101 mg/dL (70-99) 121 mg/dL (70-99) Calcium Level 8.7 mg/dL (8.5-10.1) 9.2 mg/dL (8.5-10.1) Thyroid Stimulating Hormone (TSH) 0.338 uIU/mL (0.358-3.74) Assessment/Plan Assessment/Plan IMP TAMI PROB ATN HYPOTENSION HYPONATREMIA HYPERKALEMIA BRADYCARDIA URINARY RETENTION PLAN HOLD MAYE-I HOLD MOBIC ISOTONIC SALINE CARDIOLOGY EVAL AND TX RENAL SONOGRAM WILL FOLLOW VENR ALFRED MD December 21, 2016 16:04
--- NOTE | 2016-12-21 17:34 | RAD ---
Exam performed: Renal sonogram. Indication: Acute renal insufficiency Date of Service: 12/21/16 . Comparison: None available Technique: Real-time grayscale imaging of the kidneys is performed and images are obtained. Findings: Both kidneys are normal in size and echogenicity. The right kidney measures 11.0 x 4.3 x 4.4 cm whereas the left kidney measures 11.0 x 3.8 x 6.1 cm. There is no hydronephrosis or perinephric fluid collection. The urinary bladder is well distended and appears normal. Impression: 1. Essentially unremarkable renal sonogram.
--- NOTE | 2016-12-21 17:49 | CARD ---
APPROVED REPORT EXAM: Two-dimensional and M-mode echocardiogram with Doppler and color Doppler. Other Information Quality : Good INDICATION Abnormal ECG Hypotension, Bradycardia 2D DIMENSIONS RVDd3.2 (2.9-3.5cm)Left Atrium(2D)3.7 (1.6-4.0cm) IVSd1.1 (0.7-1.1cm)Aortic Root(2D)2.8 (2.0-3.7cm) LVDd4.7 (3.9-5.9cm)LVOT Diameter2.2 (1.8-2.4cm) PWd1.1 (0.7-1.1cm)LVDs2.5 (2.5-4.0cm) FS (%) 30.0 %SV80.5 ml LVEF(%)60.0 (>50%) Aortic Valve AoV Peak James.158.8cm/sAoV VTI29.5cm AO Peak GR.10.1mmHgLVOT VTI 26.49cm AO Mean GR.5mmHgAVA (VTI)3.50cm2 Mitral Valve MV E Rgdibjya45.5cm/sMV DECEL [id number] MV A Yncsiens14.8cm/sE/A Ratio0.9 TDI Lateral E' P. V12.55cm/sMedial E' P. V8.32cm/s E/Lateral E'6.0E/Medial E'9.1 Tricuspid Valve TR P. Wilwohnm596gg/sRAP [id number] TR Peak Gr.00moFnHSXU51ruCi Pulmonary Vein S1 Hpkibauy96.6cm/sS2 Yxbybcma55.50cm/s D2 Wmzmjnuf82.5cm/sPVa [id number] LEFT VENTRICLE The left ventricle is normal size. There is normal left ventricular wall thickness. The left ventricu lar systolic function is normal and the ejection fraction is within normal range. The Ejection Fracti on is 60%. There is normal LV segmental wall motion. Transmitral Doppler flow pattern is Grade I-abno rmal relaxation pattern. RIGHT VENTRICLE The right ventricle is normal size. The right ventricular systolic function is normal. ATRIA The left atrium size is normal. The right atrium size is normal. The interatrial septum is intact wit h no evidence for an atrial septal defect or patent foramen ovale as noted on 2-D or Doppler imaging. AORTIC VALVE The aortic valve is mildly thickened but opens well. Doppler and Color Flow revealed no significant a ortic regurgitation. There is no significant aortic valvular stenosis. MITRAL VALVE The mitral valve is normal in structure There is no evidence of mitral valve prolapse. There is no mi tral valve stenosis. Doppler and Color-flow revealed trace mitral regurgitation. TRICUSPID VALVE The tricuspid valve is normal in structure Doppler and Color Flow revealed trace tricuspid regurgitat ion. There is mild pulmonary hypertension. The PA pressure was estimated at 31 mmHg. There is no tric uspid valve stenosis. PULMONIC VALVE The pulmonary valve is normal in structure Doppler and Color Flow revealed trace pulmonic valvular re gurgitation. There is no pulmonic valvular stenosis. GREAT VESSELS The aortic root is normal in size. The ascending aorta is normal in size. The IVC is normal in size a nd collapses >50% with inspiration. PERICARDIAL EFFUSION There is no evidence of significant pericardial effusion. Critical Notification Critical Value: No <Conclusion> The left ventricular systolic function is normal and the ejection fraction is within normal range. The Ejection Fraction is 60%. Transmitral Doppler flow pattern is Grade I-abnormal relaxation pattern. The left atrium size is normal. The right atrium size is normal. The aortic valve is mildly thickened but opens well. Doppler and Color-flow revealed trace mitral regurgitation. Doppler and Color Flow revealed trace tricuspid regurgitation. There is mild pulmonary hypertension. The PA pressure was estimated at 31 mmHg. Doppler and Color Flow revealed trace pulmonic valvular regurgitation. There is no evidence of significant pericardial effusion.
--- NOTE | 2016-12-21 18:56 | PDOC2 ---
CONSULT Date of Consult Date of Consult DATE: 12/21/16 TIME: 18:49 Reason for Consult Reason for Consult: Bradycardia Referring Physician Referring Physician: Dr. Garza Identification/Chief Complaint Chief Complaint Hypotension History of Present Illness Reason for Visit: This patient is a 66-year-old gentleman that has a known history of hypertension arthritis and is a smoker and has a known history of EtOH abuse. The patient has been seen at this institution for a recent visit in the emergency room when he was having a lot of hip pain. He was treated medically and discharged. Usually he is seen at the [facility]. The patient was seen at the [facility] and was started on amlodipine for his high blood pressure and he has been noticing that he has been getting weak and lightheaded and his blood pressure has been running very low due to that he came into the ER with a low blood pressure and near syncope. After he arrived in the ER he was found to be hypotensive, hyponatremic with a sodium of 117 and hypokalemic with a potassium of 6.5. The patient was bradycardic in what appeared to be a junctional bradycardia at that point. He was treated medically with IV fluids and Kayexalate and Lasix. Today his blood pressure is doing better and he is in sinus rhythm with a rate in the 70s. The electrolytes have improved. The patient denies having any history of any heart problems in the past. No chest pains, no palpitations, no loss of consciousness. Past Medical History Cardiovascular: HTN Musculoskeletal: Osteoarthritis Family History Family History: Hypertension Social History 1 pack per day ALCOHOL: heavy Drugs: None Lives: with Family Current Problem List Problem List Problems Medical Problems: (1) Bradycardia Status: Acute (2) Hyperkalemia Status: Acute Current Medications Current Medications Current Medications Sodium Chloride 1,000 ml @ 1,000 mls/hr Q1H IV Last administered on 12/20/16 17:14; Start 12/20/16 at 17:15; Stop 12/20/16 at 18:14; Status DC Sodium Polystyrene Sulfonate (Kayexalate) 15 gm 1X ONCE PO Last administered on 12/20/16 18:27; Start 12/20/16 at 18:15; Stop 12/20/16 at 18:16; Status DC Sodium Chloride 1,000 ml @ 1,000 mls/hr 1X ONCE IV Last administered on 20:26; Start 12/20/16 at 20:30; Stop 12/20/16 at 21:29; Status DC Furosemide (Lasix) 40 mg 1X ONCE IVP Last administered on 12/20/16 20:26; Start 12/20/16 at 20:30; Stop 12/20/16 at 20:31; Status DC Sodium Chloride (Normal Saline Flush) 3 ml QSHIFT PRN IV AFTER MEDS AND BLOOD DRAWS; Start 12/21/16 at 09:30 Citalopram Hydrobromide (CeleXA) 20 mg DAILY PO Last administered on 12/21/16 10:50; Start 12/21/16 at 11:00 Acetaminophen/ Hydrocodone Bitart (Lortab 5/325) 1 tab PRN Q6HRS PRN PO PAIN Last administered on 12/21/16 17:53; Start 12/21/16 at 10:15 Lisinopril (Prinivil) 20 mg DAILY PO Last administered on 12/21/16 10:50; Start 12/21/16 at 11:00 Meloxicam (Mobic) 7.5 mg BID PO Last administered on 12/21/16 10:49; Start 12/21 at 11:00 Quetiapine Fumarate (SEROquel) 25 mg HS PO ; Start 12/21/16 at 21:00 Non-Formulary Medication 1 pkg UD PO ; Start 12/21/16 at 10:15; Status UNV Pantoprazole Sodium (Protonix) 40 mg DAILYAC PO Last administered on 12/21/16 10:49; Start 12/21/16 at 11:00 Multivitamins/ Minerals (I-Anupam) 1 tab DAILY PO Last administered on 12/21/16 10:49; Start 12/21/16 at 11:00 Nicotine Polacrilex (Nicorette Gum) 1 each PRN Q2HR PRN BC SMOKING CESSATION; Start 12/21/16 at 10:15 Morphine Sulfate 1 mg 1X ONCE IM ; Start 12/21/16 at 10:45; Stop 12/21/16 at 10: 45; Status DC Sodium Chloride 1,000 ml @ 100 mls/hr Q10H IV Last administered on 12/21/16 10 :48; Start 12/21/16 at 10:15 Methylprednisolone (Medrol) 4 mg TIDPC PO Last administered on 12/21/16 17:53; Start 12/21/16 at 11:00; Stop 12/21/16 at 17:31; Status DC Methylprednisolone (Medrol) 8 mg QHS PO ; Start 12/21/16 at 21:00; Stop 12/21/16 at 21:01 Methylprednisolone (Medrol) 4 mg QIDAFTMEAL PO ; Start 12/22/16 at 09:00; Stop at 21:01 Methylprednisolone (Medrol) 4 mg TID PO ; Start 12/23/16 at 09:00; Stop at 21:01 Methylprednisolone (Medrol) 4 mg BID PO ; Start 12/24/16 at 09:00; Stop at 21:01 Methylprednisolone (Medrol) 4 mg DAILY PO ; Start 12/25/16 at 09:00; Stop at 09:01 Morphine Sulfate 1 mg 1X ONCE IV Last administered on 12/21/16 10:48; Start at 10:45; Stop 12/21/16 at 10:46; Status DC Active Scripts Active Medrol (Methylprednisolone) 4 Mg Tab.ds.pk 1 Pkg PO UD [place] 5-325 Tablet (Acetaminophen/Hydrocodone Bitart) 1 Each Tablet 1 Tab PO PRN Q6HRS PRN Reported Celexa (Citalopram Hydrobromide) 20 Mg Tablet 1 Tab PO DAILY Seroquel (Quetiapine Fumarate) 25 Mg Tablet 20 Mg PO HS Omeprazole 20 Mg Tablet.dr 1 Tab PO DAILY Amlodipine Besylate 10 Mg Tablet 10 Mg PO DAILY Lisinopril 20 Mg Tablet 1 Tab PO DAILY Meloxicam 7.5 Mg Tablet 7.5 Mg PO BID Multivitamins (Multivitamin) 1 Each Capsule 1 Each PO Allergies Allergies: Coded Allergies: trazodone (Verified Allergy, Intermediate, 01/18/16) Physical Exam General: Alert, Oriented X3, Cooperative HEENT: Atraumatic, PERRLA Lungs: Clear to auscultation Heart: Regular rate, Normal S1, Normal S2 Abdomen: Normal bowel sounds, Soft Extremities: No edema Vitals VITALS Vital Signs Date Time Temp Pulse Resp B/P (MAP) Pulse Ox O2 Delivery O2 Flow Rate FiO2 12/21/16 17:53 Room Air 12/21/16 16:00 98.5 80 22 113/75 (88) 94 98.5 12/21/16 06:00 2.0 Labs Labs Laboratory Tests Test 12/20/16 16:16 12/20/16 16:35 12/20/16 20:40 12/20/16 22:13 Urine Collection Type Unknown Urine Color Yellow Urine Clarity Cloudy Urine pH 5.0 Urine Specific [place] 1.020 Urine Protein 30 mg/dL (NEG-TRACE) Urine Glucose (UA) Negative mg/dL (NEG) Urine Ketones (Stick) Negative mg/dL (NEG) Urine Blood Negative (NEG) Urine Nitrite Negative (NEG) Urine Bilirubin Negative (NEG) Urine Urobilinogen Dipstick 0.2 mg/dL (0.2 mg/dL) Urine Leukocyte Esterase Negative (NEG) Urine RBC 0 /HPF (0-2) Urine WBC Occ /HPF (0-4) Urine Squamous Epithelial Cells Occ /LPF Urine Bacteria 0 /HPF (0-FEW) Urine Hyaline Casts Many /HPF Urine Mucus Slight /LPF White Blood Count 15.1 x10^3/uL (4.0-11.0) Red Blood Count 3.78 x10^6/uL (4.30-5.70) Hemoglobin 10.3 g/dL (13.0-17.5) Hematocrit 30.9 % (39.0-53.0) Mean Corpuscular Volume 82 fL (79-100) Mean Corpuscular Hemoglobin 27 pg (25-35) Mean Corpuscular Hemoglobin Concent 33 g/dL (31-37) Red Cell Distribution Width 16.3 % (11.5-14.5) Platelet Count 282 x10^3/uL (140-400) Neutrophils (%) (Auto) 84 % (31-73) Lymphocytes (%) (Auto) 9 % (24-48) Monocytes (%) (Auto) 7 % (0-9) Eosinophils (%) (Auto) 0 % (0-3) Basophils (%) (Auto) 0 % (0-3) Neutrophils # (Auto) 12.7 x10^3uL (1.8-7.7) Lymphocytes # (Auto) 1.4 x10^3/uL (1.0-4.8) Monocytes # (Auto) 1.0 x10^3/uL (0.0-1.1) Eosinophils # (Auto) 0.0 x10^3/uL (0.0-0.7) Basophils # (Auto) 0.0 x10^3/uL (0.0-0.2) Segmented Neutrophils % 73 % (35-66) Band Neutrophils % 3 % (0-9) Lymphocytes % 17 % (24-48) Monocytes % 7 % (0-10) Platelet Estimate Adequate (ADEQUATE) Polychromasia Slight Sodium Level 117 mmol/L (136-145) 120 mmol/L (136-145) Potassium Level 6.5 mmol/L (3.5-5.1) 6.1 mmol/L (3.5-5.1) Chloride Level 86 mmol/L (98-107) 89 mmol/L (98-107) Carbon Dioxide Level 23 mmol/L (21-32) 22 mmol/L (21-32) Anion Gap 8 (6-14) 9 (6-14) Blood Urea Nitrogen 29 mg/dL (8-26) 31 mg/dL (8-26) Creatinine 2.4 mg/dL (0.7-1.3) 2.3 mg/dL (0.7-1.3) Estimated GFR (Cockcroft-Gault) 33.0 34.7 Glucose Level 126 mg/dL (70-99) 119 mg/dL (70-99) Calcium Level 8.3 mg/dL (8.5-10.1) 7.7 mg/dL (8.5-10.1) Magnesium Level 2.1 mg/dL (1.8-2.4) Total Bilirubin 0.6 mg/dL (0.2-1.0) Direct Bilirubin 0.2 mg/dL (0.0-0.2) Aspartate Amino Transf (AST/SGOT) 26 U/L (15-37) Alanine Aminotransferase (ALT/SGPT) 29 U/L (16-63) Alkaline Phosphatase 59 U/L (46-116) Troponin I Quantitative < 0.017 ng/mL (0.000-0.055) CC-Cxg-M-Type Natriuretic Peptide 2216 pg/mL (0-124) Total Protein 7.1 g/dL (6.4-8.2) Albumin 3.5 g/dL (3.4-5.0) Nasal Screen MRSA (PCR) Negative (Negative) Test 12/21/16 05:35 12/21/16 13:15 Sodium Level 125 mmol/L (136-145) 129 mmol/L (136-145) Potassium Level 5.3 mmol/L (3.5-5.1) 4.8 mmol/L (3.5-5.1) Chloride Level 93 mmol/L (98-107) 95 mmol/L (98-107) Carbon Dioxide Level 24 mmol/L (21-32) 24 mmol/L (21-32) Anion Gap 8 (6-14) 10 (6-14) Blood Urea Nitrogen 27 mg/dL (8-26) 26 mg/dL (8-26) Creatinine 1.9 mg/dL (0.7-1.3) 1.6 mg/dL (0.7-1.3) Estimated GFR (Cockcroft-Gault) 43.3 52.8 Glucose Level 101 mg/dL (70-99) 121 mg/dL (70-99) Calcium Level 8.7 mg/dL (8.5-10.1) 9.2 mg/dL (8.5-10.1) Thyroid Stimulating Hormone (TSH) 0.338 uIU/mL (0.358-3.74) Laboratory Tests Test 12/20/16 20:40 12/20/16 22:13 12/21/16 05:35 12/21/16 13:15 Sodium Level 120 mmol/L (136-145) 125 mmol/L (136-145) 129 mmol/L (136-145) Potassium Level 6.1 mmol/L (3.5-5.1) 5.3 mmol/L (3.5-5.1) 4.8 mmol/L (3.5-5.1) Chloride Level 89 mmol/L (98-107) 93 mmol/L (98-107) 95 mmol/L (98-107) Carbon Dioxide Level 22 mmol/L (21-32) 24 mmol/L (21-32) 24 mmol/L (21-32) Anion Gap 9 (6-14) 8 (6-14) 10 (6-14) Blood Urea Nitrogen 31 mg/dL (8-26) 27 mg/dL (8-26) 26 mg/dL (8-26) Creatinine 2.3 mg/dL (0.7-1.3) 1.9 mg/dL (0.7-1.3) 1.6 mg/dL (0.7-1.3) Estimated GFR (Cockcroft-Gault) 34.7 43.3 52.8 Glucose Level 119 mg/dL (70-99) 101 mg/dL (70-99) 121 mg/dL (70-99) Calcium Level 7.7 mg/dL (8.5-10.1) 8.7 mg/dL (8.5-10.1) 9.2 mg/dL (8.5-10.1) Nasal Screen MRSA (PCR) Negative (Negative) Thyroid Stimulating Hormone (TSH) 0.338 uIU/mL (0.358-3.74) Assessment/Plan Assessment/Plan This patient comes in with electrolyte imbalance involving hyponatremia and hyperkalemia with a resulting junctional rhythm. The bradycardia is most likely due to the hyperkalemia. I do not think that the amlodipine is the cause of all of this patient's problems but I would think that the smoking and drinking however a lot more to do with it than the recent start of the amlodipine. I agree with the present plan and will get an echocardiogram to evaluate the left ventricular function. Thank you very much for asking me to participate in the care of this patient TUTU PEDRO MD December 21, 2016 18:55
[2016-12-21] MEDS ORDERED: methylPREDNISolone 4 MG TABLET. PO SCH (21:00)
[2016-12-21] MEDS ORDERED: QUEtiapine 25 MG TABLET. PO SCH (21:00)
[2016-12-22 00:10] VITALS: BP 112/59
[2016-12-22 03:10] VITALS: BP 158/78
[2016-12-22 06:08] LABS: BASO % 0 % (0-3); EOS % 0 % (0-3); HEMATOCRIT 33.7 % (39.0-53.0); HEMOGLOBIN 10.8 g/dL (13.0-17.5); LYMPH # 1.3 x10^3/uL (1.0-4.8); LYMPH % 11 % (24-48); MEAN CORPUSCULAR HEMOGLOBIN 27 pg (25-35); MEAN CORPUSCULAR HGB CONC 32 g/dL (31-37); MEAN CORPUSCULAR VOLUME 84 fL (79-100); MONO % 7 % (0-9); NEUT % 81 % (31-73); PLATELET COUNT 320 x10^3/uL (140-400); RED BLOOD COUNT 4.03 x10^6/uL (4.30-5.70); RED CELL DISTRIBUTION WIDTH 16.2 % (11.5-14.5); WHITE BLOOD COUNT 11.5 x10^3/uL (4.0-11.0)
[2016-12-22 06:28] LABS: % SAT IRON 16 % (15-34); CALCIUM 8.9 mg/dL (8.5-10.1); CREATININE 1.3 mg/dL (0.7-1.3); IRON,SERUM 53 ug/dL (65-175); POTASSIUM 5.1 mmol/L (3.5-5.1)
[2016-12-22 08:00] VITALS: BP 148/81
[2016-12-22] MEDS: IV NORMAL SALINE 1000ML BAG 1,000 ML IV SCH (08:00)
[2016-12-22] MEDS: PANTOPRAZOLE 40 MG TABLET.DR. PO SCH (08:01)
[2016-12-22] MEDS: LISINOPRIL 20 MG TABLET PO SCH (08:01)
[2016-12-22] MEDS: methylPREDNISolone 4 MG TABLET. PO SCH ×2 (08:01→13:51)
[2016-12-22] MEDS: MULTIVITAMIN I-VITE TABLET. PO SCH (08:02)
[2016-12-22] MEDS: HYDROcodone/APAP 5/325MG 1 TAB TABLET PO PRN (08:02)
[2016-12-22] MEDS: CITALOPRAM 20 MG TABLET. PO SCH (08:02)
[2016-12-22] MEDS: MELOXICAM 7.5 MG TABLET PO SCH (08:02)
--- NOTE | 2016-12-22 08:57 | PDOC ---
PROGRESS NOTES Chief Complaint Chief Complaint Dizziness ASSESSMENT AND PLAN: 1. Hyponatremia: improving. he remains asymptomatic from neuro standpoint. 2. Hyperkalemia: improved, but remains borderline high. monitor. appreciate Dr Ortiz's input. rpt labs at 1PM, if ok, will D/C home 4. TAMI: vasomotor etiology. resolved 5. Bradycardia: resolved. suspect 2/[address] Juárez ' input. echo with nl EF 6. Hypotension: POA, resolved 7. HTN: borderline high on lisinopril. add norvasc back in 9. Hip Pain: better. continue recently prescribed medrol dose pack, norco PRN 8. Tobaccoism: nicotine gum 9. Alcoholism: ativan PRN. long discussion with him: had 21d EtOH detox at [place], but declined furhter recommended inpt F/U. his is now reconsidering. 10. prophylaxis: SQ heparin, H2B History of Present Illness History of Present Illness feels fine, no PERKINS, dizziness, no nausea. no SOB or CP Vitals Vitals Vital Signs Date Time Temp Pulse Resp B/P (MAP) Pulse Ox O2 Delivery O2 Flow Rate FiO2 12/22/16 08:02 Room Air 12/22/16 08:01 62 148/81 12/22/16 08:00 98.5 16 96 98.5 Physical Exam General: Alert, Oriented X3, Cooperative Heart: Regular rate, Normal S1, Normal S2 Abdomen: Normal bowel sounds, Soft Extremities: No edema Labs LABS Laboratory Tests Test 12/21/16 13:15 12/22/16 05:35 Sodium Level 129 mmol/L (136-145) 133 mmol/L (136-145) Potassium Level 4.8 mmol/L (3.5-5.1) 5.1 mmol/L (3.5-5.1) Chloride Level 95 mmol/L (98-107) 100 mmol/L (98-107) Carbon Dioxide Level 24 mmol/L (21-32) 25 mmol/L (21-32) Anion Gap 10 (6-14) 8 (6-14) Blood Urea Nitrogen 26 mg/dL (8-26) 21 mg/dL (8-26) Creatinine 1.6 mg/dL (0.7-1.3) 1.3 mg/dL (0.7-1.3) Estimated GFR (Cockcroft-Gault) 52.8 67.0 Glucose Level 121 mg/dL (70-99) 113 mg/dL (70-99) Calcium Level 9.2 mg/dL (8.5-10.1) 8.9 mg/dL (8.5-10.1) White Blood Count 11.5 x10^3/uL (4.0-11.0) Red Blood Count 4.03 x10^6/uL (4.30-5.70) Hemoglobin 10.8 g/dL (13.0-17.5) Hematocrit 33.7 % (39.0-53.0) Mean Corpuscular Volume 84 fL (79-100) Mean Corpuscular Hemoglobin 27 pg (25-35) Mean Corpuscular Hemoglobin Concent 32 g/dL (31-37) Red Cell Distribution Width 16.2 % (11.5-14.5) Platelet Count 320 x10^3/uL (140-400) Neutrophils (%) (Auto) 81 % (31-73) Lymphocytes (%) (Auto) 11 % (24-48) Monocytes (%) (Auto) 7 % (0-9) Eosinophils (%) (Auto) 0 % (0-3) Basophils (%) (Auto) 0 % (0-3) Neutrophils # (Auto) 9.3 x10^3uL (1.8-7.7) Lymphocytes # (Auto) 1.3 x10^3/uL (1.0-4.8) Monocytes # (Auto) 0.8 x10^3/uL (0.0-1.1) Eosinophils # (Auto) 0.0 x10^3/uL (0.0-0.7) Basophils # (Auto) 0.0 x10^3/uL (0.0-0.2) Reticulocyte Count (auto) 1.9 % (0.5-2.5) Iron Level 53 ug/dL (65-175) Total Iron Binding Capacity 328 ug/dL (250-450) Iron Saturation 16 % (15-34) Ferritin 1469 ng/mL (26-388) Triglycerides Level 146 mg/dL (0-150) Cholesterol Level 233 mg/dL (0-200) LDL Cholesterol, Calculated 157 mg/dL (0-100) VLDL Cholesterol, Calculated 29 mg/dL (0-40) Non-HDL Cholesterol Calculated 186 mg/dL (0-129) HDL Cholesterol 47 mg/dL (40-60) Cholesterol/HDL Ratio 5.0 DIANNA KURTZ MD December 22, 2016 08:57
[2016-12-22] MEDS ORDERED: HEPARIN PF for SUB-Q USE 5,000 UNIT/0.5 ML VIAL. SQ SCH (10:00)
[2016-12-22 10:59] LABS: FOLATE 15.07 ng/ml (3.2-20.0)
[2016-12-22] MEDS ORDERED: amLODIPine BESYLATE 10 MG TABLET PO ONE (11:15)
[2016-12-22] MEDS ORDERED: amLODIPine BESYLATE 10 MG TABLET PO SCH (11:30)
--- NOTE | 2016-12-22 11:37 | PDOC ---
Renal-Progress Notes Subjective Notes Notes FEELS WELL History of Present Illness Hx of present illness BETTER Vitals Vitals Vital Signs Date Time Temp Pulse Resp B/P (MAP) Pulse Ox O2 Delivery O2 Flow Rate FiO2 12/22/16 09:45 Room Air 12/22/16 08:01 62 148/81 12/22/16 08:00 98.5 16 96 98.5 Weight Weight [ ] I.O. Intake and Output Intake and Output 12/22/16 06:59 Intake Total 3068 ml Output Total 5650 ml Balance -2582 ml Intake Oral 1810 ml IV Total 1258 ml Output Urine Total 5650 ml Labs Labs Laboratory Tests Test 12/21/16 13:15 12/22/16 05:35 Sodium Level 129 mmol/L (136-145) 133 mmol/L (136-145) Potassium Level 4.8 mmol/L (3.5-5.1) 5.1 mmol/L (3.5-5.1) Chloride Level 95 mmol/L (98-107) 100 mmol/L (98-107) Carbon Dioxide Level 24 mmol/L (21-32) 25 mmol/L (21-32) Anion Gap 10 (6-14) 8 (6-14) Blood Urea Nitrogen 26 mg/dL (8-26) 21 mg/dL (8-26) Creatinine 1.6 mg/dL (0.7-1.3) 1.3 mg/dL (0.7-1.3) Estimated GFR (Cockcroft-Gault) 52.8 67.0 Glucose Level 121 mg/dL (70-99) 113 mg/dL (70-99) Calcium Level 9.2 mg/dL (8.5-10.1) 8.9 mg/dL (8.5-10.1) White Blood Count 11.5 x10^3/uL (4.0-11.0) Red Blood Count 4.03 x10^6/uL (4.30-5.70) Hemoglobin 10.8 g/dL (13.0-17.5) Hematocrit 33.7 % (39.0-53.0) Mean Corpuscular Volume 84 fL (79-100) Mean Corpuscular Hemoglobin 27 pg (25-35) Mean Corpuscular Hemoglobin Concent 32 g/dL (31-37) Red Cell Distribution Width 16.2 % (11.5-14.5) Platelet Count 320 x10^3/uL (140-400) Neutrophils (%) (Auto) 81 % (31-73) Lymphocytes (%) (Auto) 11 % (24-48) Monocytes (%) (Auto) 7 % (0-9) Eosinophils (%) (Auto) 0 % (0-3) Basophils (%) (Auto) 0 % (0-3) Neutrophils # (Auto) 9.3 x10^3uL (1.8-7.7) Lymphocytes # (Auto) 1.3 x10^3/uL (1.0-4.8) Monocytes # (Auto) 0.8 x10^3/uL (0.0-1.1) Eosinophils # (Auto) 0.0 x10^3/uL (0.0-0.7) Basophils # (Auto) 0.0 x10^3/uL (0.0-0.2) Reticulocyte Count (auto) 1.9 % (0.5-2.5) Iron Level 53 ug/dL (65-175) Total Iron Binding Capacity 328 ug/dL (250-450) Iron Saturation 16 % (15-34) Ferritin 1469 ng/mL (26-388) Triglycerides Level 146 mg/dL (0-150) Cholesterol Level 233 mg/dL (0-200) LDL Cholesterol, Calculated 157 mg/dL (0-100) VLDL Cholesterol, Calculated 29 mg/dL (0-40) Non-HDL Cholesterol Calculated 186 mg/dL (0-129) HDL Cholesterol 47 mg/dL (40-60) Cholesterol/HDL Ratio 5.0 Review of Systems Constitutional: yes: no symptom reported Pulmonary: Yes no symptom reported Cardiovascular: Yes no symptom reported Musculoskeletal: Yes: no symptom reported Psychiatric/Neurological: Yes: no symptom reported Physical Exam General Appearance: no apparent distress Skin: warm Respiratory: bilateral CTA Heart: S1S2, RRR Abdomen: soft, bowel sounds present Extremities: pulses present Neurology: alert, oriented Musculoskeletal: Osteoarthritis Assessment Assessment IMP HYPERKALEMIA-BETTER HYPONATREMIA-BETTER TAMI-BETTER BRADYCARDIA - RESOLVED ALCOHOLISM HTN-CONTROLLED PLAN CONT SAME PLAN D/C SOON ENC ABSTINENCE FROM ETOH ALSO SUGGEST STAYING OFF MOBIC AND MAYE-I VERN ALFRED MD December 22, 2016 11:37
[2016-12-22 12:00] VITALS: BP 155/80
[2016-12-22 13:18] LABS: CALCIUM 8.6 mg/dL (8.5-10.1); CREATININE 1.5 mg/dL (0.7-1.3); GFR 56.8; POTASSIUM 4.5 mmol/L (3.5-5.1)
[2016-12-22 16:00] VITALS: BP 141/81
[2016-12-23] MEDS ORDERED: methylPREDNISolone 4 MG TABLET. PO SCH (09:00)
[2016-12-24] MEDS ORDERED: methylPREDNISolone 4 MG TABLET. PO SCH (09:00)
[2016-12-25] MEDS ORDERED: methylPREDNISolone 4 MG TABLET. PO SCH (09:00)
--- NOTE | 2016-12-26 01:43 | DS ---
DATE OF DISCHARGE: 12/22/2016 CHIEF COMPLAINT: Dizziness. HOSPITAL COURSE: The patient is a 66-year-old gentleman who presented to the Emergency Room with some dizziness. He was found with severe hyponatremia at 117 and hyperkalemia at 6 as well as bradycardia with junctional rhythm. The latter was suspected to be secondary to the electrolyte derangements. Consult with Dr. Juárez was obtained and confirmed suspicion. For the abnormal electrolytes, he was given IV fluids as well as Kayexalate and Lasix. All numbers recovered fairly quickly. On further questioning, it appears that the patient is actually drinking significantly more alcohol than he admits to. He apparently had undergone a 21-day alcohol detox at the [facility], but had declined further in and outpatient treatment. 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 DISCHARGE PHYSICAL EXAMINATION: Please refer to note from same day. DISCHARGE DIAGNOSES: Hyponatremia and hyperkalemia. DISCHARGE DISPOSITION: To home. DISCHARGE CONDITION: Improved. DISCHARGE MEDICATIONS: Please refer to MAR. DISCHARGE INSTRUCTIONS: The patient will follow up with his primary care physician at the [facility]. DIANNA KURTZ MD DR: UR/nts JOB#: [id number] / [id number] [facility]
== END 2016-12-22 16:00 | disposition home or self-care (01) | DRG 314 ==
LOC: ER 17:04 → 1 WEST ICU 20:00
PROVIDERS: ADMIT Internal Medicine; ATTEND Internal Medicine
DX: I95.9 Hypotension, unspecified (principal); N17.0 Acute kidney failure with tubular necrosis; E22.2 Syndrome of inappropriate secretion of antidiuretic hormone; E87.1 Hypo-osmolality and hyponatremia; E87.6 Hypokalemia; R00.1 Bradycardia, unspecified; E78.00 Pure hypercholesterolemia, unspecified; E87.5 Hyperkalemia; F10.20 Alcohol dependence, uncomplicated; F17.200 Nicotine dependence, unspecified, uncomplicated; F39 Unspecified mood [affective] disorder; F43.10 Post-traumatic stress disorder, unspecified; I10 Essential (primary) hypertension; R33.9 Retention of urine, unspecified; F41.9 Anxiety disorder, unspecified; G89.29 Other chronic pain; M19.90 Unspecified osteoarthritis, unspecified site; Z88.8 Allergy status to other drugs, medicaments and biological substances; Z82.49 Family history of ischemic heart disease and other diseases of the circulatory system
CPT/HCPCS: 36415; 71010; 71250; 76770; 80048; 80061; 80076; 81001; 82607; 82728; 82746; 83540; 83550; 83735; 83880; 84443; 84484; 85007; 85027; 85045; 87641; 93005; 93306; 96361; 96374; 99406; J1940; J2270; J7030; J7509; 99285-25

== ENCOUNTER → 2017-01-26 | Outpatient (CLI) | payer MEDICARE ==
[~2017-01-26] MED LIST changes: +AMLO10TA2 PO; +CITA20TA9 PO; +LISI-334 PO; +MELO7.5T29 PO; +MULT1CAP15 PO; +OMEP20TA8 PO; +QUET25TA5 PO
--- NOTE | 2017-01-26 15:35 | KCIC ---
MRI Lumbar Spine without contrast History: Low back pain, radicular pain, left hip pain for about 6 months Technique: Multiplanar, multi sequential noncontrast MR imaging was performed of the lumbar spine. Contrast: None Comparison: None Findings: There is motion degradation. Lumbar vertebral body stature and AP alignment are adequate. Conus terminates at L1. There is moderate to severe degenerative disc disease at L4-5, L4-5 endplate edema probably reactive/degenerative in etiology. There is [id number] degenerative disc disease L3-4, minimally at more superior levels. There is also edema of the anterior superior corner of L4 probably reactive/degenerative in etiology. There is some heterogeneity of marrow signal with degenerative change of the anterior superior corners of L2-L4. Conus terminates at L1. L1-L2: This level was not included on the axial images. There is broad posterior bulge. Neural foramina are not significantly narrowed. L2-L3: There is a broad posterior bulge. There is mild buckling of the ligamentum flavum and prominence of posterior epidural fat and mild to moderate facet degenerative change. There is mild narrowing of the right neural foramen, left neural foramen adequate. There is [id number] narrowing of the lateral recesses bilaterally, mild narrowing of the central canal. L3-L4: There is minimal disc osteophyte complex and bulge. There is prominence of posterior epidural fat, mild buckling of the ligamentum flavum, and mild facet degenerative change. There is overall mild spinal stenosis. There is mild to moderate right and mild left neural foramina compromise. L4-L5: There is moderate facet degenerative change and mild buckling of the ligamentum flavum. There is disc osteophyte complex and superimposed broad bulge/protrusion, also an extrusion extending below the intervertebral disc space in the left lateral recess. There is contact of the descending L5 nerve roots greater on the left. Extrusion is estimated at 0.6 cm transverse by 0.9 cm cc by up to 0.5 cm AP. There is mild prominence of posterior epidural fat, buckling of the ligamentum flavum, and moderate facet hypertrophic change. There is moderate to severe narrowing of the far lateral recesses bilaterally. There is mild narrowing of the central canal. There is severe narrowing of the right neural foramen mostly by protrusion which contacts the exiting right L4 nerve root in the neural foramen and proximal extraforaminal region, moderate narrowing of the left neural foramen. L5-S1: Spinal canal and neural foramina are adequate. There is prominence of epidural fat in the lateral recesses bilaterally, preserved central subarachnoid space. Impression: 1. There is bilateral, left greater than right L4-5 lateral recess stenosis with contact of the descending L5 nerve roots greater on the left, extrusion extending below the intervertebral disc space in the left lateral recess. There is [id number] narrowing of the lateral recesses bilaterally at L2-3, mild spinal stenosis L3-4. 2. There is severe right and moderate left L4-5 neural foramina compromise, contact of the exiting right L4 nerve root by protrusion in the right neural foramen and proximal extraforaminal region. 3. There is moderate to severe degenerative disc disease L4-5, associated endplate edema likely reactive/degenerative in etiology. There is a lesser degree of degenerative disc disease at L3-4 and minimally at more superior levels. Electronically signed by: Skip Lopez MD (01/26/2017 3:31 PM)
== END | disposition home or self-care (01) ==
LOC: KCIC MRI 14:30
PROVIDERS: ATTEND Orthopaedic Surgery
DX: M48.06 Spinal stenosis, lumbar region (principal); M51.26 Other intervertebral disc displacement, lumbar region
CPT/HCPCS: 72148

== ENCOUNTER 2017-03-18 13:00 | Emergency (ER) | payer MEDICARE ==
[~2017-03-18] VITALS: Ht 185.4 cm; Wt 82.6 kg
[2017-03-18] MEDS ORDERED: LISINOPRIL 10 MG TABLET PO STA (13:38)
--- NOTE | 2017-03-18 13:40 | PHYS DOC ---
Past Medical History Past Medical History: Anxiety, High Cholesterol, Hypertension, Other Additional Past Medical Histor: PTSD, MOOD DISORDER, CHRONIC PAIN Past Surgical History: Other Additional Past Surgical Histo: cardiac cath with no stent placement Alcohol Use: Heavy Drug Use: None Adult General Chief Complaint Chief Complaint: DIZZY/LIGHT HEADED HPI HPI Patient is a 66 year old male who presents with complaint of high blood pressure. Patient states that he started having lightheadedness approximately 1 hour prior to arrival. The patient states that he took his blood pressure during this episode and was unable to get a reading on his home blood pressure monitor. Patient states that he has had similar episodes with high blood pressure which is why he came to the emergency department for evaluation. Eyes any associated chest pain, shortness of breath, or unilateral weakness. Patient states that he takes lisinopril 20 mg daily. The patient states that he restarted citalopram yesterday but has had no other medication changes. Patient denies any recent illnesses. Review of Systems Review of Systems Constitutional: Lightheadedness, denies fever or chills [] Eyes: Denies change in visual acuity, redness, or eye pain [] HENT: Denies nasal congestion or sore throat [] Respiratory: Denies cough or shortness of breath [] Cardiovascular: Denies chest pain or edema [] GI: Denies abdominal pain, nausea, vomiting, bloody stools or diarrhea [] : Denies dysuria or hematuria [] Musculoskeletal: Denies back pain or joint pain [] Integument: Denies rash or skin lesions [] Neurologic: Denies headache, focal weakness or sensory changes [] Current Medications Current Medications Current Medications Medications (Trade) Dose Ordered Sig/Taiwo Start Time Stop Time Status Last Admin Dose Admin Lisinopril (Prinivil) 20 mg 1X STAT 03/18/17 13:38 03/18/17 13:42 DC 03/18/17 13:54 20 MG Allergies Allergies Allergies Coded Allergies Type Severity Reaction Last Updated Verified trazodone Allergy Intermediate 01/18/16 Yes Physical Exam Physical Exam Constitutional: Well developed, well nourished, no acute distress, non-toxic appearance. [] HENT: Normocephalic, atraumatic, bilateral external ears normal, oropharynx moist, no oral exudates, nose normal. [] Eyes: PERRLA, EOMI, conjunctiva normal, no discharge. [] Neck: Normal range of motion, no tenderness, supple, no stridor. [] Cardiovascular:Heart rate regular rhythm, no murmur [] Lungs & Thorax: Bilateral breath sounds clear to auscultation [] Abdomen: Bowel sounds normal, soft, no tenderness, no masses, no pulsatile masses. [] Skin: Warm, dry, no erythema, no rash. [] Back: No tenderness, no CVA tenderness. [] Extremities: No tenderness, no cyanosis, no clubbing, ROM intact, no edema. [] Neurologic: Alert and oriented X 3, normal motor function, normal sensory function, no focal deficits noted. [] Psychologic: Affect normal, judgement normal, mood normal. [] Current Patient Data Vital Signs Vital Signs Date Time Temp Pulse Resp B/P (MAP) Pulse Ox O2 Delivery O2 Flow Rate FiO2 03/18/17 13:54 65 182/96 03/18/17 13:00 97.7 16 98 Room Air 97.7 Lab Values Laboratory Tests Test 03/18/17 13:33 White Blood Count 7.7 x10^3/uL (4.0-11.0) Red Blood Count 5.28 x10^6/uL (4.30-5.70) Hemoglobin 14.2 g/dL (13.0-17.5) Hematocrit 43.1 % (39.0-53.0) Mean Corpuscular Volume 82 fL (79-100) Mean Corpuscular Hemoglobin 27 pg (25-35) Mean Corpuscular Hemoglobin Concent 33 g/dL (31-37) Red Cell Distribution Width 15.0 % (11.5-14.5) H Platelet Count 287 x10^3/uL (140-400) Neutrophils (%) (Auto) 53 % (31-73) Lymphocytes (%) (Auto) 33 % (24-48) Monocytes (%) (Auto) 10 % (0-9) H Eosinophils (%) (Auto) 3 % (0-3) Basophils (%) (Auto) 1 % (0-3) Neutrophils # (Auto) 4.0 x10^3uL (1.8-7.7) Lymphocytes # (Auto) 2.5 x10^3/uL (1.0-4.8) Monocytes # (Auto) 0.8 x10^3/uL (0.0-1.1) Eosinophils # (Auto) 0.2 x10^3/uL (0.0-0.7) Basophils # (Auto) 0.1 x10^3/uL (0.0-0.2) Sodium Level 138 mmol/L (136-145) Potassium Level 3.8 mmol/L (3.5-5.1) Chloride Level 103 mmol/L (98-107) Carbon Dioxide Level 27 mmol/L (21-32) Anion Gap 8 (6-14) Blood Urea Nitrogen 14 mg/dL (8-26) Creatinine 1.4 mg/dL (0.7-1.3) H Estimated GFR (Cockcroft-Gault) 61.5 Glucose Level 92 mg/dL (70-99) Calcium Level 8.6 mg/dL (8.5-10.1) Magnesium Level 1.9 mg/dL (1.8-2.4) Laboratory Tests 03/18/17 13:33 Laboratory Tests 03/18/17 13:33 EKG EKG Interpreted by me: Heart rate 80, sinus rhythm, normal intervals, nonspecific T- wave inversion in lead 3, no acute ST elevations or depressions [] Radiology/Procedures Radiology/Procedures Not performed [] Course & Med Decision Making Course & Med Decision Making Pertinent Labs and Imaging studies reviewed. (See chart for details) The patient was given 20 mg of oral lisinopril in the emergency department. The patient's blood pressure improved to 162/90. The patient denies any symptoms currently. Patient was advised to recheck blood pressure and to take 40 mg of lisinopril if his blood pressure reads greater than 165/95 and to follow-up in the next 2-3 days with his primary doctor for reevaluation. Advised return emergency department for any worsening symptoms. Patient voiced understanding and in agreement with treatment plan. Dragon Disclaimer Dragon Disclaimer This electronic medical record was generated, in whole or in part, using a voice recognition dictation system. Departure Departure Impression: Primary Impression: Accelerated hypertension Disposition: HOME, SELF-CARE Condition: IMPROVED Referrals: NO PCP (PCP) Patient Instructions: Hypertension Additional Instructions: Follow-up to primary doctor in the next 2-3 days for reevaluation. Increase your blood pressure dose to 40 mg daily if your blood pressure reads greater than 165/95. Return to the emergency department for any worsening symptoms. MELISSA YBARRA MD Mar 18, 2017 13:40
[2017-03-18 13:48] LABS: BASO # 0.1 x10^3/uL (0.0-0.2); BASO % 1 % (0-3); EOS % 3 % (0-3); HEMATOCRIT 43.1 % (39.0-53.0); HEMOGLOBIN 14.2 g/dL (13.0-17.5); LYMPH # 2.5 x10^3/uL (1.0-4.8); LYMPH % 33 % (24-48); MEAN CORPUSCULAR HEMOGLOBIN 27 pg (25-35); MEAN CORPUSCULAR HGB CONC 33 g/dL (31-37); MEAN CORPUSCULAR VOLUME 82 fL (79-100); MONO % 10 % (0-9); NEUT % 53 % (31-73); PLATELET COUNT 287 x10^3/uL (140-400); RED BLOOD COUNT 5.28 x10^6/uL (4.30-5.70); WHITE BLOOD COUNT 7.7 x10^3/uL (4.0-11.0)
[2017-03-18 14:09] LABS: CALCIUM 8.6 mg/dL (8.5-10.1); CREATININE 1.4 mg/dL (0.7-1.3); GFR 61.5; MAGNESIUM 1.9 mg/dL (1.8-2.4); POTASSIUM 3.8 mmol/L (3.5-5.1)
--- NOTE | 2017-03-18 14:24 | EKG ---
[facility] [address] [place] [address] Test Date: 2017-03-18 Test Time: 13:09:15 Pat Name: ABDIEL WATTS Department: Room: Gender: M [employer]ist: : [id number] Requested By: MELISSA YBARRA Order Number: [id number] Reading MD: Man Juárez Measurements Intervals [place] Rate: 80 P: 37 [place]: 200 QRS: -22 QRSD: 82 T: -2 QT: 382 QTc: 444 Interpretive Statements SINUS RHYTHM WITH FIRST DEGREE AV BLOCK LEFTWARD AXIS QRS(T) CONTOUR ABNORMALITY CANNOT RULE OUT ANTEROSEPTAL MYOCARDIAL DAMAGE RI6.01 Unconfirmed report Compared to ECG 12/20/2016 16:21:25 Left-axis deviation now present Electronically Signed On 03-18-2017 16:03:52 CDT by Man Juárez
[2017-03-18 16:26] VITALS: BP 157/84
== END 2017-03-18 16:27 | disposition home or self-care (01) ==
LOC: ER 13:00
DX: I10 Essential (primary) hypertension (principal); F41.9 Anxiety disorder, unspecified; E78.00 Pure hypercholesterolemia, unspecified; F43.10 Post-traumatic stress disorder, unspecified; G89.29 Other chronic pain; F10.10 Alcohol abuse, uncomplicated; Z88.5 Allergy status to narcotic agent
CPT/HCPCS: 36415; 80048; 83735; 85027; 93005; 99285-25

== ENCOUNTER 2017-05-20 07:33 | Emergency (ER) | payer MEDICARE ==
[~2017-05-20] VITALS: Ht 185.4 cm; Wt 82.6 kg
[2017-05-20 07:53] VITALS: BP 156/87
--- NOTE | 2017-05-20 08:00 | PHYS DOC ---
Past Medical History Past Medical History: Anxiety, High Cholesterol, Hypertension, Other Additional Past Medical Histor: PTSD, MOOD DISORDER, CHRONIC PAIN Past Surgical History: Other Additional Past Surgical Histo: cardiac cath with no stent placement Alcohol Use: Heavy Drug Use: None Adult General Chief Complaint Chief Complaint: URINE CATHETER PROBLEM HPI HPI Patient is a 66 year old male since to the emergency department stating that he had prostate surgery in which she removed the prostate due to cancer. He states that he had a Huerta catheter placed during surgery. He states that his catheter has not been functioning properly. He states that there is always urine in the tubing. He feels that the solution always be clear of urine. He denies any fever, chills or any nausea or vomiting. Denies any abdominal pain or discomfort. He does state that he's been having normal bowel movements. Review of Systems Review of Systems Constitutional: Denies fever or chills [] Eyes: Denies change in visual acuity, redness, or eye pain [] HENT: Denies nasal congestion or sore throat [] Respiratory: Denies cough or shortness of breath [] Cardiovascular: No additional information not addressed in HPI [] GI: Denies abdominal pain, nausea, vomiting, bloody stools or diarrhea [] : Denies dysuria or hematuria. C/o huerta catheter not working properly Musculoskeletal: Denies back pain or joint pain [] Integument: Denies rash or skin lesions [] Neurologic: Denies headache, focal weakness or sensory changes [] Endocrine: Denies polyuria or polydipsia [] Allergies Allergies Allergies Coded Allergies Type Severity Reaction Last Updated Verified trazodone Allergy Intermediate 01/18/16 Yes Physical Exam Physical Exam Constitutional: Well developed, well nourished, no acute distress, non-toxic appearance. [] HENT: Normocephalic, atraumatic, bilateral external ears normal, oropharynx moist, no oral exudates, nose normal. [] Eyes: PERRLA, EOMI, conjunctiva normal, no discharge. [] Neck: Normal range of motion, no tenderness, supple, no stridor. [] Cardiovascular:Heart rate regular rhythm, no murmur [] Lungs & Thorax: Bilateral breath sounds clear to auscultation [] Abdomen: Bowel sounds hypoactive, soft, no tenderness, no masses, no pulsatile masses. [] Skin: Warm, dry, no erythema, no rash. [] Back: No tenderness Extremities: No tenderness, no cyanosis, no clubbing, ROM intact, no edema. [] Neurologic: Alert and oriented X 3, normal motor function, normal sensory function, no focal deficits noted. [] Psychologic: Affect normal, judgement normal, mood normal. [] Huerta catheter noted to have scant bloody urine. Patient with urine noted in the catheter and in the catheter bag. Current Patient Data Vital Signs Vital Signs Date Time Temp Pulse Resp B/P (MAP) Pulse Ox O2 Delivery O2 Flow Rate FiO2 05/20/17 07:53 97.9 79 20 95 Room Air 97.9 Lab Values Laboratory Tests Test 05/20/17 07:50 Urine Collection Type Unknown Urine Color Red Urine Clarity Cloudy Urine pH 6.5 Urine Specific [place] 1.025 Urine Protein >=300 mg/dL (NEG-TRACE) Urine Glucose (UA) Negative mg/dL (NEG) Urine Ketones (Stick) Trace mg/dL (NEG) Urine Blood Large (NEG) Urine Nitrite Negative (NEG) Urine Bilirubin Negative (NEG) Urine Urobilinogen Dipstick 0.2 mg/dL (0.2 mg/dL) Urine Leukocyte Esterase Moderate (NEG) Urine RBC Tntc /HPF (0-2) Urine WBC 1-4 /HPF (0-4) Urine Bacteria Few /HPF (0-FEW) EKG EKG [] Radiology/Procedures Radiology/Procedures [] Course & Med Decision Making Course & Med Decision Making Pertinent Labs and Imaging studies reviewed. (See chart for details) Urine was positive for leukocytes, patient states he has already been placed on Keflex Patient was provided with huerta catheter information and care. He was instructed that if he does not see urine the in the tubing or the bag this should raise concern. Abdominal pain may be associated with this as well. Patient was instructed to followup with surgeon in the next 3-5 days. Recommended plenty of fluids such as water and cranberry juice. Avoid cranberry juice cocktail, carbonated beverages, alcohol, citrus fruits and caffeine. Signs and symptoms to return to the emergency department has been provided. All questions and concerns have been answered at patients beside. [] Dragon Disclaimer Dragon Disclaimer This electronic medical record was generated, in whole or in part, using a voice recognition dictation system. Departure Departure Impression: Primary Impression: Huerta catheter problem Disposition: HOME, SELF-CARE Condition: STABLE Referrals: NO PCP (PCP) Patient Instructions: Huerta Catheter Care, Adult Additional Instructions: Activity as tolerated Continue with your Keflex. the urine will be cultured out, If the antibiotic needs to be changed you will be notified. Drink plenty of fluids such as: water and cranberry juice. Avoid cranberry juice cocktail, carbonated beverages, citrus fruits, caffeine and alcohol. Continue to keep the catheter to dependent drainage Followup with your surgeon in the next 3-5 days Return to emergency department as needed for signs and symptoms that become worse. Problem Qualifiers Primary Impression: Huerta catheter problem Encounter type: initial encounter Qualified Codes: T83.9XXA - Unspecified complication of genitourinary prosthetic device, implant and graft, initial encounter SITA LUEVANO APRN May 20, 2017 08:00
[2017-05-20 08:14] LABS: BILIRUBIN,URINE NEGATIVE (NEG); GLUCOSE,URINE NEGATIVE (NEG); NITRITE,URINE NEGATIVE (NEG); PH,URINE 6.5; PROTEIN,URINE >=300 mg/dL (NEG-TRACE); UROBILINOGEN,URINE 0.2 mg/dL (0.2 mg/dL)
[2017-05-20 08:31] LABS: BACTERIA,URINE FEW /HPF (0-FEW); RBC,URINE TNTC /HPF (0-2)
== END 2017-05-20 08:52 | disposition home or self-care (01) ==
LOC: ER 07:33
DX: T83.9XXA Unspecified complication of genitourinary prosthetic device, implant and graft, initial encounter (principal); E78.00 Pure hypercholesterolemia, unspecified; G89.29 Other chronic pain; F43.10 Post-traumatic stress disorder, unspecified; I10 Essential (primary) hypertension; F10.20 Alcohol dependence, uncomplicated; Z79.899 Other long term (current) drug therapy; Z88.8 Allergy status to other drugs, medicaments and biological substances
CPT/HCPCS: 81001; 87086; 99284

== ENCOUNTER 2020-07-07 10:29 | Emergency (ER) | payer MEDICARE ==
[~2020-07-07] VITALS: Ht 185.4 cm; Wt 81.0 kg
[~2020-07-07 10:29] MED LIST changes: +AMLO-187 PO; -AMLO10TA2 PO; +HYDR-3164 PO; -HYDR-971 PO
[2020-07-07 11:07] VITALS: BP 177/98
[2020-07-07] MEDS ORDERED: AMLO-187 PO (11:16)
--- NOTE | 2020-07-07 11:17 | PHYS DOC ---
Past Medical History Past Medical History: Anxiety, High Cholesterol, Hypertension, Other Additional Past Medical Histor: PTSD, MOOD DISORDER, CHRONIC PAIN Past Surgical History: Other Additional Past Surgical Histo: cardiac cath with no stent placement Smoking Status: Current Every Day Smoker Alcohol Use: Heavy Drug Use: None General Adult EDM: Chief Complaint: HYPERTENSION HPI: HPI: Patient is a 70 year old male arrives as a chief complaint of high blood pressure. Over the several days patient's notices blood pressure elevating when he stands up. Symptoms are better when he sits down. Patient denies any chest pain shortness of breath, nausea vomiting headache or any other complaints other than noticing his blood pressure was elevated when he stands up. Patient takes one half of a 10 mg amlodipine in the morning and 20 mg lisinopril twice a day. Review of Systems: Review of Systems: Constitutional: Denies fever or chills. [] Eyes: Denies change in visual acuity. [] HENT: Denies nasal congestion or sore throat. [] Respiratory: Denies cough or shortness of breath. [] Cardiovascular: Denies chest pain or edema. [] GI: Denies abdominal pain, nausea, vomiting, bloody stools or diarrhea. [] : Denies dysuria. [] Musculoskeletal: Denies back pain or joint pain. [] Integument: Denies rash. [] Neurologic: Denies headache, focal weakness or sensory changes. [] Endocrine: Denies polyuria or polydipsia. [] Lymphatic: Denies swollen glands. [] Psychiatric: Denies depression or anxiety. [] Heart Score: Risk Factors: Risk Factors: DM, Current or recent (<one month) smoker, HTN, HLP, family history of CAD, obesity. Risk Scores: Score 0 - 3: 2.5% MACE over next 6 weeks - Discharge Home Score 4 - 6: 20.3% MACE over next 6 weeks - Admit for Clinical Observation Score 7 - 10: 72.7% MACE over next 6 weeks - Early Invasive Strategies Allergies: Allergies: Allergies Coded Allergies Type Severity Reaction Last Updated Verified trazodone Allergy Intermediate 01/18/16 Yes Physical Exam: PE: Constitutional: Well developed, well nourished, no acute distress, non-toxic appearance. [] HENT: Normocephalic, atraumatic, bilateral external ears normal, no trismus nose normal. [] Eyes: PERRLA, EOMI, conjunctiva normal, no discharge. [] Neck: Normal range of motion, no tenderness, supple, no stridor. [], No meningeal signs Cardiovascular:Heart rate regular rhythm, peripheral pulses are intact cap refill is brisk Lungs & Thorax: Bilateral breath sounds clear, no respiratory distress Abdomen soft, no tenderness, no masses, no pulsatile masses. [] Skin: Warm, dry, no erythema, no rash. [] Back: No tenderness, no CVA tenderness. [] Extremities: No tenderness, no cyanosis, no clubbing, ROM intact, no edema. [] Neurologic: Alert and oriented X 3, normal motor function, normal sensory function, no focal deficits noted. [] Psychologic: Affect normal, judgement normal, mood normal. [] Current Patient Data: Vital Signs: Vital Signs Date Time Temp Pulse Resp B/P (MAP) Pulse Ox O2 Delivery O2 Flow Rate FiO2 07/07/20 10:33 97.9 75 18 177/105 (129) 100 Room Air 97.9 EKG: EKG: [] Radiology/Procedures: Radiology/Procedures: [] Course & Med Decision Making: Course & Med Decision Making Pertinent Labs and Imaging studies reviewed. (See chart for details) [] 70-year-old male presents with a essentially asymptomatic high blood pressure. Discussed with patient increasing his amlodipine from 5 to 10 mg in the morning. Dragon Disclaimer: Dragon Disclaimer: This electronic medical record was generated, in whole or in part, using a voice recognition dictation system. Departure Departure Impression: Primary Impression: HTN (hypertension) Disposition: 01 DC HOME SELF CARE/HOMELESS Condition: STABLE Referrals: LIVE MORGAN M.D. (PCP) 2-3 DAYS Patient Instructions: Hypertension Additional Instructions: EMERGENCY DEPARTMENT GENERAL DISCHARGE INSTRUCTIONS THANK YOU for coming to [facility] Emergency Department (ED) today and trusting us with your care. We trust that you had a positive experience in our Emergency Department. If you wish to speak to the department Management you can contact the chief librarian branch or department at . YOUR FOLLOW UP INSTRUCTIONS ARE FOLLOWS: Do you have a private doctor? If you do not have a private doctor, please ask for a resource list of physicians or clinics that may be able to assist you with follow up care. The Emergency Physician has interpreted your x-rays. The X-ray specialist will also review them. If there is a change in the findings you will be notified in 48 hours when at all possible. A lab test or lab culture may have been done, your results will be reviewed and you will be notified if you need a change in treatment. ADDITIONAL INSTRUCTIONS AND INFORMATION Your care today has been supervised by a physician who is specially trained in emergency care. Many problems require more than one evaluation for a complete diagnosis and treatment. We recommend that you schedule your follow up appointment as recommended to en sure complete treatment of your illness or injury. If you are unable to obtain follow up care and continue to have a problem, or if your condition worsens we recommend that you return to the ED. We are not able to safely determine your condition over the phone nor are we able to give sound medical advice over the phone. For these safety reasons, if you call for medical advice we will ask you to come to the ED for further evaluation If you have any questions regarding these discharge instructions please call the ED at . SAFETY INFORMATION In the interest of safety, wellness, and injury prevention; we encourage you to wear your seatbelt, if you smoke; quit smoking, and we encourage your family to use protective helmet for bicycling and other sporting events that present an increased risk for head injury. IF YOUR SYMPTOMS WORSEN OR NEW SYMPTOMS DEVELOP, OR YOU HAVE CONCERNS ABOUT YOUR CONDITION; OR IF YOUR CONDITION WORSENS WHILE YOU ARE WAITING FOR YOUR FOLLOW UP APPOINTMENT; EITHER CONTACT YOUR PRIMARY CARE DOCTOR, THE PHYSICIAN WHOSE NAME AND NUMBER YOU WERE GIVEN, OR RETURN TO THE ED IMMEDIATELY. Scripts Amlodipine Besylate (AMLODIPINE BESYLATE) 10 Mg Tablet 10 MG PO DAILY, #30 TAB Prov: NEREYDA OH MD 07/07/20 NEREYDA OH MD Jul 07, 2020 11:16
== END 2020-07-07 11:28 | disposition home or self-care (01) ==
LOC: ER 10:29
DX: I10 Essential (primary) hypertension (principal); F41.9 Anxiety disorder, unspecified; E78.00 Pure hypercholesterolemia, unspecified; G89.29 Other chronic pain; F17.200 Nicotine dependence, unspecified, uncomplicated; F10.10 Alcohol abuse, uncomplicated; Z98.890 Other specified postprocedural states; Z88.8 Allergy status to other drugs, medicaments and biological substances
CPT/HCPCS: 99283

== ENCOUNTER 2021-01-29 09:31 | Emergency (ER) | payer MEDICARE ==
[~2021-01-29] VITALS: Ht 185.4 cm; Wt 76.0 kg
[~2021-01-29 09:31] MED LIST changes: -LISI-334 PO; +LISI20TA18 PO
--- NOTE | 2021-01-29 09:37 | PHYS DOC ---
Past Medical History Past Medical History: Anxiety, High Cholesterol, Hypertension, Other Additional Past Medical Histor: PTSD, MOOD DISORDER, CHRONIC PAIN Past Surgical History: Other Additional Past Surgical Histo: cardiac cath with no stent placement Smoking Status: Current Every Day Smoker Alcohol Use: Heavy Drug Use: None General Adult EDM: Chief Complaint: ABDOMINAL PAIN HPI: HPI: Patient is a 70 year old [f__sex] who presents with [] Review of Systems: Review of Systems: Constitutional: Denies fever or chills. [] Eyes: Denies change in visual acuity. [] HENT: Denies nasal congestion or sore throat. [] Respiratory: Denies cough or shortness of breath. [] Cardiovascular: Denies chest pain or edema. [] GI: Denies abdominal pain, nausea, vomiting, bloody stools or diarrhea. [] : Denies dysuria. [] Musculoskeletal: Denies back pain or joint pain. [] Integument: Denies rash. [] Neurologic: Denies headache, focal weakness or sensory changes. [] Endocrine: Denies polyuria or polydipsia. [] Lymphatic: Denies swollen glands. [] Psychiatric: Denies depression or anxiety. [] Heart Score: C/O Chest Pain: N/A Risk Factors: Risk Factors: DM, Current or recent (<one month) smoker, HTN, HLP, family history of CAD, obesity. Risk Scores: Score 0 - 3: 2.5% MACE over next 6 weeks - Discharge Home Score 4 - 6: 20.3% MACE over next 6 weeks - Admit for Clinical Observation Score 7 - 10: 72.7% MACE over next 6 weeks - Early Invasive Strategies Allergies: Allergies: Allergies Coded Allergies Type Severity Reaction Last Updated Verified trazodone Allergy Intermediate 01/18/16 Yes Physical Exam: PE: Constitutional: Well developed, well nourished, no acute distress, non-toxic appearance. [] HENT: Normocephalic, atraumatic, bilateral external ears normal, oropharynx moist, no oral exudates, nose normal. [] Eyes: PERRLA, EOMI, conjunctiva normal, no discharge. [] Neck: Normal range of motion, no tenderness, supple, no stridor. [] Cardiovascular:Heart rate regular rhythm, no murmur [] Lungs & Thorax: Bilateral breath sounds clear to auscultation [] Abdomen: Bowel sounds normal, soft, no tenderness, no masses, no pulsatile masses. [] Skin: Warm, dry, no erythema, no rash. [] Back: No tenderness, no CVA tenderness. [] Extremities: No tenderness, no cyanosis, no clubbing, ROM intact, no edema. [] Neurologic: Alert and oriented X 3, normal motor function, normal sensory function, no focal deficits noted. [] Psychologic: Affect normal, judgement normal, mood normal. [] EKG: EKG: Normal Sinus Rhythm Rate [address] No ST depression No acute PR [] Performed by [id number] Radiology/Procedures: Radiology/Procedures: [] Impression: CT STUDY OF THE ABDOMEN AND PELVIS WITH CONTRAST Clinical indications: Abdominal pain. Epigastric pain for 2 weeks. History of prostate cancer. TECHNIQUE: After IV infusion of 75 cc of Omnipaque 300, helical CT scanning of the abdomen and pelvis was performed. GI contrast was not administered. This may decrease the sensitivity to detect GI tract pathology. PQRS COMPLIANCE STATEMENT One or more of the following individualized dose reduction techniques were utilized for this study: 1. Automated exposure control 2. Adjustment of the mA and/or kV according to patient size 3. Use of iterative reconstruction technique COMPARISON: No previous abdomen/pelvis CT available. FINDINGS: The liver and spleen and pancreas are normal. Gallbladder is normal and no extrahepatic biliary ductal dilatation is seen. No adrenal mass is seen. There is a hypodense nodule within the upper pole of the right kidney which demonstrates Hounsfield unit measurements are 11 - 15 consistent with a cyst. There are small subcentimeter hypodense nodules within the posterior mid aspect of the right kidney and the lateral mid aspect of the left kidney which are too small to accurately characterize. No hydronephrosis or hydroureter or urinary tract stone is evident. Urinary bladder is not abnormally distended. No focal aneurysmal dilatation of the abdominal aorta is seen. No enlarged abdominal lymphadenopathy is seen. There is a cystic lesion within the anterior left side of the lower pelvis adjacent to the external iliac vessels which measures anywhere from 1 Hounsfield unit to 19 Hounsfield units. There is a thin peripheral rim. This lesion measures 41 mm in greatest dimension. There is a similar lesion seen on the right side which is smaller measuring 36 mm. This measures anywhere from 0 to11 Hounsfield units. Thin peripheral rim is seen here as well. No other pelvic lymphadenopathy is seen otherwise. The prostate gland appears to be surgically absent. No anterior abdominal wall hernia or inguinal canal hernia is seen. No obstructive bowel pattern is seen. There is diffuse wall thickening of the colon starting at the. Transverse colon down into the rectosigmoid region. The appendix and terminal ileum are unremarkable. No free air or free fluid or mesenteric edema is seen. Calcified granulomas of both lung bases are seen. No lytic process is seen. IMPRESSION: Wall thickening of the colon from the mid transverse colon down into the rectosigmoid region. This may be due to incomplete distention but may be seen with colitis. Indeterminate subcentimeter bilateral renal nodules. These may be difficult to see sonographically due to their small size. Therefore, follow-up abdomen CT with IV contrast in one year is recommended. There is a larger cyst involving t he upper pole of the right kidney. Bilateral anterior pelvic cystic lesions adjacent to the external iliac vessels. This could represent postoperative fluid collections after prostatectomy since the prostate gland is surgically absent. Another possibility is cystic necrosis of bilateral pelvic lymph nodes if there is a history of previous treatment of pelvic lymphadenopathy. No anterior abdominal wall or inguinal wall hernia is seen. Course & Med Decision Making: Course & Med Decision Making Pertinent Labs and Imaging studies reviewed. (See chart for details) [] [place] Disclaimer: Dragjayme Disclaimer: This electronic medical record was generated, in whole or in part, using a voice recognition dictation system. Departure Departure Impression: Primary Impression: Abdominal pain Additional Impression: Colitis Disposition: HOME / SELF CARE / HOMELESS Condition: STABLE Referrals: LIVE MORGAN M.D. (PCP) Patient Instructions: Abdominal Migraine, Colitis Scripts Ondansetron Hcl (ZOFRAN) 4 Mg Tablet 1 TAB PO Q6HRS, #20 TAB Prov: OCTAVIO LEON I DO 01/29/21 Metronidazole (FLAGYL) 500 Mg Tablet 1 TAB PO BID, #14 TAB Prov: OCTAVIO LEON I DO 01/29/21 Ciprofloxacin Hcl (CIPRO) 500 Mg Tablet 1 TAB PO BID for 7 Days, #14 TAB 0 Refills Prov: OCTAVIO LEON I DO 01/29/21 OCTAVIO LEON I DO Jan 29, 2021 09:37
[2021-01-29] MEDS ORDERED: FAMOTIDINE 20 MG/2 ML VIAL IVP ONE (10:00)
[2021-01-29] MEDS ORDERED: MORPHINE SULFATE 2 MG/ML VIAL. IV ONE (10:00)
[2021-01-29 10:01] LABS: BASO % 1 % (0-3); EOS # 0.1 x10^3/uL (0.0-0.7); EOS % 1 % (0-3); HEMOGLOBIN 13.4 g/dL (13.0-17.5); LYMPH # 1.3 x10^3/uL (1.0-4.8); LYMPH % 21 % (24-48); MEAN CORPUSCULAR HEMOGLOBIN 27 pg (25-35); MEAN CORPUSCULAR HGB CONC 34 g/dL (31-37); MEAN CORPUSCULAR VOLUME 80 fL (79-100); MONO # 0.5 x10^3/uL (0.0-1.1); MONO % 8 % (0-9); NEUT # 4.1 x10^3/uL (1.8-7.7); NEUT % 69 % (31-73); PLATELET COUNT 347 x10^3/uL (140-400); RED BLOOD COUNT 5.01 x10^6/uL (4.30-5.70); RED CELL DISTRIBUTION WIDTH 15.1 % (11.5-14.5)
[2021-01-29 10:19] LABS: BILIRUBIN,URINE NEGATIVE (NEG); CLARITY,URINE CLEAR; COLOR,URINE YELLOW; NITRITE,URINE NEGATIVE (NEG); PH,URINE 5.5 (<5.0-8.0); PROTEIN,URINE 30 mg/dL (NEG-TRACE)
[2021-01-29 10:21] LABS: CALCIUM 8.9 mg/dL (8.5-10.1); CREATININE 1.4 mg/dL (0.7-1.3); GFR 60.8; POTASSIUM 3.4 mmol/L (3.5-5.1); TOTAL BILIRUBIN 0.6 mg/dL (0.2-1.0)
[2021-01-29 10:30] LABS: BACTERIA,URINE 0 /HPF (0-FEW); RBC,URINE 0 /HPF (0-2)
[2021-01-29] MEDS ORDERED: IOHEXOL 300 MG/ML 100ML VIAL. IV ONE (10:30)
[2021-01-29] MEDS ORDERED: CONTRAST GIVEN. MC PRN (10:30)
[2021-01-29 10:31] LABS: HYALINE CASTS, URINE FEW /HPF
--- NOTE | 2021-01-29 11:19 | RAD ---
CT STUDY OF THE ABDOMEN AND PELVIS WITH CONTRAST Clinical indications: Abdominal pain. Epigastric pain for 2 weeks. History of prostate cancer. TECHNIQUE: After IV infusion of 75 cc of Omnipaque 300, helical CT scanning of the abdomen and pelvis was performed. GI contrast was not administered. This may decrease the sensitivity to detect GI trac t pathology. PQRS COMPLIANCE STATEMENT One or more of the following individualized dose reduction techniques were utilized for this study: 1. Automated exposure control 2. Adjustment of the mA and/or kV according to patient size 3. Use of iterative reconstruction technique COMPARISON: No previous abdomen/pelvis CT available. FINDINGS: The liver and spleen and pancreas are normal. Gallbladder is normal and no extrahepatic gino iary ductal dilatation is seen. No adrenal mass is seen. There is a hypodense nodule within the upper pole of the right kidney which demonstrates Hounsfield unit measurements are 11 - 15 consistent with a cyst. There are small subcentimeter hypodense nodules within the posterior mid aspect of the right kidney and the lateral mid aspect of the left kidney which are too small to accurately characterize. No hydronephrosis or hydroureter or urinary tract stone is evident. Urinary bladder is not abnormall y distended. No focal aneurysmal dilatation of the abdominal aorta is seen. No enlarged abdominal lym phadenopathy is seen. There is a cystic lesion within the anterior left side of the lower pelvis ignacio cent to the external iliac vessels which measures anywhere from 1 Hounsfield unit to 19 Hounsfield un its. There is a thin peripheral rim. This lesion measures 41 mm in greatest dimension. There is a sim ilar lesion seen on the right side which is smaller measuring 36 mm. This measures anywhere from 0 t o11 Hounsfield units. Thin peripheral rim is seen here as well. No other pelvic lymphadenopathy is se en otherwise. The prostate gland appears to be surgically absent. No anterior abdominal wall hernia o r inguinal canal hernia is seen. No obstructive bowel pattern is seen. There is diffuse wall thickeni ng of the colon starting at the. Transverse colon down into the rectosigmoid region. The appendix and terminal ileum are unremarkable. No free air or free fluid or mesenteric edema is seen. Calcified gr anulomas of both lung bases are seen. No lytic process is seen. IMPRESSION: Wall thickening of the colon from the mid transverse colon down into the rectosigmoid reg ion. This may be due to incomplete distention but may be seen with colitis. Indeterminate subcentimeter bilateral renal nodules. These may be difficult to see sonographically du e to their small size. Therefore, follow-up abdomen CT with IV contrast in one year is recommended. T here is a larger cyst involving the upper pole of the right kidney. Bilateral anterior pelvic cystic lesions adjacent to the external iliac vessels. This could represent postoperative fluid collections after prostatectomy since the prostate gland is surgically absent. A nother possibility is cystic necrosis of bilateral pelvic lymph nodes if there is a history of previo us treatment of pelvic lymphadenopathy. No anterior abdominal wall or inguinal wall hernia is seen. Electronically signed by: Chago Bermudez MD (01/29/2021 11:17 AM) [id number]
[2021-01-29] MEDS ORDERED: CIPR500T94 PO (11:27)
[2021-01-29] MEDS ORDERED: ONDA4TAB7 PO (11:27)
[2021-01-29] MEDS ORDERED: METR500T PO (11:27)
[2021-01-29 12:01] VITALS: BP 137/79
== END 2021-01-29 12:15 | disposition home or self-care (01) ==
LOC: ER 09:31
DX: K52.9 Noninfective gastroenteritis and colitis, unspecified (principal); E78.00 Pure hypercholesterolemia, unspecified; I10 Essential (primary) hypertension; G89.29 Other chronic pain; F17.200 Nicotine dependence, unspecified, uncomplicated; Z88.8 Allergy status to other drugs, medicaments and biological substances
CPT/HCPCS: 36415; 74177; 80053; 81001; 83690; 83735; 84484; 85025; 96374; 99284; J3490; Q9967

== ENCOUNTER 2021-05-21 02:06 | Emergency (ER) | payer MEDICARE ==
[~2021-05-21] VITALS: Ht 185.4 cm; Wt 70.0 kg
[~2021-05-21 02:06] MED LIST changes: +CIPR500T94 PO; +METR500T PO; +ONDA4TAB7 PO
[2021-05-21 02:30] VITALS: BP 126/74
[2021-05-21] MEDS ORDERED: LIDOCAINE/EPI/TETRACAINE TOPICAL GEL 3 ML. TP ONE (02:30)
--- NOTE | 2021-05-21 02:40 | RAD ---
CT HEAD AND C-SPINE WO dated 05/21/2021 2:27 AM. Comparison: 09/13/2009 Clinical Indication: Reason: blunt head injury / Spl. Instructions: / History: : HEAD INJURY. HEAD A ND NECK PAIN. Technical factors: Contiguous 5 mm axial images of the head were obtained from the skullbase to the v ertex. No contrast was administered. In addition, 3 mm axial images of the cervical spine were acquir ed with thin cut coronal and sagittal reconstructions. One or more of the following individualized dose reduction techniques were utilized for this examinat ion: 1. Automated exposure control 2. Adjustment of the mA and/or kV according to patient size 3. Use of iterative reconstruction technique Findings head: Ventricles and sulci are within normal limits for age. No midline shift or mass effect. Brain parench yma is of normal attenuation. No hemorrhage or extra axial collection. Posterior fossa and brainstem unremarkable. Mild mucosal thickening of the ethmoid air cells. The visualized paranasal sinuses and mastoid air ce lls are otherwise clear. No acute calvarial abnormality. IMPRESSION HEAD: No evidence of acute intracranial abnormality. Findings cervical spine: Images were acquired from the skull base to T3. Slight anterolisthesis of C4 on C5 and C5 on C6 with slight retrolisthesis of C2 on C3 and C3 on C4. Vertebral body heights are maintained. No prevertebra l soft tissue swelling. Posterior elements are intact. No evidence of fracture. Moderate endplate hypertrophic changes throughout. There is severe disc space narrowing at C6-C7 with mild disc space narrowing at C5-C6. Multilevel uncovertebral spurring with mild to moderate facet ar thropathy. There is resultant moderate bilateral foraminal stenosis at C4-C5, C5-C6 and C6-C7. No camden arent focal disc herniation. Bony canal is adequate. Visualized soft tissue structures are unremarkable. Mild emphysema at the lung apices. IMPRESSION CERVICAL SPINE: 1. No evidence of fracture or malalignment. 2. Moderate multilevel spondylosis. 3. Mild emphysema. Electronically signed by: All Lassiter MD (05/21/2021 2:37 AM) [facility]
--- NOTE | 2021-05-21 02:52 | PHYS DOC ---
Past Medical History Past Medical History: Anxiety, Cancer, Depression, High Cholesterol, Hype rtension, Other Additional Past Medical Histor: PTSD, MOOD DISORDER, CHRONIC PAIN, prostate cancer Additional Past Surgical Histo: cardiac cath with no stent placement, TURP Smoking Status: Never Smoker Alcohol Use: Occasionally Drug Use: None General Adult EDM: Chief Complaint: MECHANICAL FALL HPI: HPI: 70-year-old male presents to the emergency department after a fall at his home where he hit the back of his head on a chair. He denies any loss of consciousness, blood thinner use. States he had some bleeding at the scene. States that he feels okay at the moment just a slight headache. The patient denies nausea, vomiting, fever, chills, chest pain, shortness of breath, abdominal pain, urinary symptoms, cough, or any other complaints. Review of Systems: Review of Systems: ROS is otherwise negative except what was mentioned in HPI Heart Score: C/O Chest Pain: No Current Medications: Current Medications Medications (Trade) Dose Ordered Sig/Taiwo Start Time Stop Time Status Last Admin Dose Admin Tetracaine/ Epinephrine/ Lidocaine (Let (Vorl-Nuyyxys-Fsiou) Gel) 3 ml 1X ONCE 05/21/21 02:30 05/21/21 02:31 DC 05/21/21 02:30 3 ML Allergies: Allergies: Allergies Coded Allergies Type Severity Reaction Last Updated Verified aspirin Allergy Severe lips/face swelling 01/29/21 Yes trazodone Adverse Reaction Intermediate "hot flashes" 01/29/21 Yes Physical Exam: PE: Constitutional: No acute distress, non-toxic appearance. HENT: 4 cm laceration to the left occipital area, linear, superficial, well aligned Eyes: PERRLA, EOMI, conjunctiva normal, no discharge. Neck: Normal range of motion, supple, no stridor. Cardiovascular: Heart rate regular rhythm. 2+ radial pulses Lungs & Thorax: No respiratory distress, symmetrical expansion. Bilateral breath sounds clear to auscultation Abdomen: Soft, no tenderness Skin: Warm, dry. Extremities: No tenderness, no cyanosis, ROM intact, no edema. Neurologic: Alert and oriented X 3, normal motor function, normal sensory function, no focal deficits noted. Non ataxic gait. GCS 15. Psychologic: Affect normal, judgment normal, mood normal. Current Patient Data: Vital Signs: Vital Signs Date Time Temp Pulse Resp B/P (MAP) Pulse Ox O2 Delivery O2 Flow Rate FiO2 05/21/21 02:30 52 18 126/74 (91) 99 05/21/21 02:17 97.7 97.7 Radiology/Procedures: Radiology/Procedures: CT HEAD AND C-SPINE WO dated 05/21/2021 2:27 AM. Comparison: 09/13/2009 Clinical Indication: Reason: blunt head injury / Spl. Instructions: / History: : HEAD INJURY. HEAD AND NECK PAIN. Technical factors: Contiguous 5 mm axial images of the head were obtained from the skullbase to the vertex. No contrast was administered. In addition, 3 mm axial images of the cervical spine were acquired with thin cut coronal and sagittal reconstructions. One or more of the following individualized dose reduction techniques were utilized for this examination: 1. Automated exposure control 2. Adjustment of the mA and/or kV according to patient size 3. Use of iterative reconstruction technique Findings head: Ventricles and sulci are within normal limits for age. No midline shift or mass effect. Brain parenchyma is of normal attenuation. No hemorrhage or extra axial collection. Posterior fossa and brainstem unremarkable. Mild mucosal thickening of the ethmoid air cells. The visualized paranasal sinuses and mastoid air cells are otherwise clear. No acute calvarial abnormality. IMPRESSION HEAD: No evidence of acute intracranial abnormality. Findings cervical spine: Images were acquired from the skull base to T3. Slight anterolisthesis of C4 on C5 and C5 on C6 with slight retrolisthesis of C2 on C3 and C3 on C4. Vertebral body heights are maintained. No prevertebral soft tissue swelling. Posterior elements are intact. No evidence of fracture. Moderate endplate hypertrophic changes throughout. There is severe disc space narrowing at C6-C7 with mild disc space narrowing at C5-C6. Multilevel uncovertebral spurring with mild to moderate facet arthropathy. There is resultant moderate bilateral foraminal stenosis at C4-C5, C5-C6 and C6-C7. No apparent focal disc herniation. Bony canal is adequate. Visualized soft tissue structures are unremarkable. Mild emphysema at the lung apices. IMPRESSION CERVICAL SPINE: 1. No evidence of fracture or malalignment. 2. Moderate multilevel spondylosis. 3. Mild emphysema. Electronically signed by: All Lassiter MD (05/21/2021 2:37 AM) Laceration Repair Procedure Time: 324 Confirmed: Patient, procedure, side, and site correct. Consent: Patient has given verbal consent. Description/ repair Laceration: Location: Left occipital scalp. 4 cm in length. Shape: Linear. Depth: Superficial. Details: clean, no foreign material. Neurovascular/ tendon exam: intact. Anesthesia: Let gel Preparation: sterile field established. Irrigation: wound irrigated copiously with normal saline with pressure cap. Debridement: none. Skin closure: 4 mauricio Complexity: Single layer. Post procedure exam: Circulation, motor, sensory examination intact, Bleeding controlled. Complications: None. Patient tolerated: Well. Performed by: Skyler Cali DO. Course & Med Decision Making: Course & Med Decision Making CT negative, patient GCS 15, laceration repaired at the bedside, patient counseled on laceration care and will follow up for staple removal in 7 days Departure Departure Impression: Primary Impression: Scalp laceration Additional Impression: Blunt head trauma Disposition: HOME / SELF CARE / HOMELESS Referrals: UNKNOWN PCP NAME (PCP) Patient Instructions: Laceration Care, Adult, [id number] Additional Instructions: You were seen in the emergency department for a laceration, which was repaired with mauricio as with all lacerations, there is a chance that the laceration will leave a scar. You should wear sunscreen and/or vitamin E cream to help reduce scar formation over the wound. The laceration area may take weeks-months to heal completely and may not return to its full tensile strength. You may apply topical bacitracin or Neosporin over the wound if this helps soothe the area. It is OK to shower with the wound after your remove the dressing. Wounds can be gently cleansed with soap and water in the shower, but you should avoid soaking the wound or swimming, generally until after mauricio are removed. Lacerations have a chance of infection, and you should return to the ER for a recheck if you have fever, warmth, redness, increased swelling, pus draining from the sutured wound, or any further concerns. Please go to your primary care physician, an urgent care, or return to the ED to have your mauricio removed in 7 days. SKYLER CALI DO May 21, 2021 02:52
[2021-05-21] MEDS ORDERED: DIPH,PERTUSS(ACELL),TET VAC/PF 0.5 ML SYRINGE. VAX IM ONE (03:00)
== END 2021-05-21 04:02 | disposition home or self-care (01) ==
LOC: ER 02:06
DX: S01.01XA Laceration without foreign body of scalp, initial encounter (principal); E78.00 Pure hypercholesterolemia, unspecified; I10 Essential (primary) hypertension; F43.10 Post-traumatic stress disorder, unspecified; G89.29 Other chronic pain; Z88.6 Allergy status to analgesic agent; Z88.8 Allergy status to other drugs, medicaments and biological substances; W18.09XA Striking against other object with subsequent fall, initial encounter; Y93.89 Activity, other specified; Y92.098 Other place in other non-institutional residence as the place of occurrence of the external cause; Y99.8 Other external cause status
CPT/HCPCS: 12002; 70450; 72125; 90471; 90715; 99284-25

== ENCOUNTER 2021-05-30 16:27 | Emergency (ER) | payer MEDICARE ==
[~2021-05-30] VITALS: Ht 185.4 cm; Wt 81.8 kg
[2021-05-30 17:35] VITALS: BP 147/85
--- NOTE | 2021-05-30 18:12 | PHYS DOC ---
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 Mauricio were put in. Patient came in today to have mauricio removed. He denies headache, dizziness, redness or increased pain to the area. ([facility] Review of Systems: Review of Systems: Constitutional: Denies fever or chills. [] Eyes: Denies change in visual acuity. [] HENT: Denies nasal congestion or sore throat. [] Respiratory: Denies cough or shortness of breath. [] Cardiovascular: Denies chest pain or edema. [] GI: Denies abdominal pain, nausea, vomiting, bloody stools or diarrhea. [] : Denies dysuria. [] Musculoskeletal: Denies back pain or joint pain. [] Integument: Denies rash. +Sutured laceration to the back of the head [] Neurologic: Denies headache, focal weakness or sensory changes. [] Endocrine: Denies polyuria or polydipsia. [] Lymphatic: Denies swollen glands. [] Psychiatric: Denies depression or anxiety. 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 [] HENT: Normocephalic, atraumatic, bilateral external ears normal, oropharynx moist, no oral exudates, nose normal. [] Eyes: PERRLA, EOMI, conjunctiva normal, no discharge. [] Neck: Normal range of motion, no tenderness, supple, no stridor. [] Cardiovascular:Heart rate regular rhythm, no murmur [] Lungs & Thorax: Bilateral breath sounds clear to auscultation [] Abdomen: Bowel sounds normal, soft, no tenderness, no masses, no pulsatile masses. [] Skin: Warm, dry, no erythema, no rash. Sutures to the left back of the head intact. Laceration healed. [] Back: No tenderness, no CVA tenderness. [] Extremities: No tenderness, no cyanosis, no clubbing, ROM intact, no edema. [] Neurologic: Alert and oriented X 3, normal motor function, normal sensory function, no focal deficits noted. [] Psychologic: Affect normal, judgement normal, mood normal. [] (SITA FABIAN APRN) Current Patient Data: Vital Signs: Vital Signs Date Time Temp Pulse Resp B/P (MAP) Pulse Ox O2 Delivery O2 Flow Rate FiO2 05/30/21 17:35 97.6 88 22 147/85 (105) 98 Room Air 97.6 (SITA FABIAN APRN) EKG: EKG: [] (SITA FABIAN APRN) Radiology/Procedures: Radiology/Procedures: [] (SITA FABIAN APRN) Course & Med Decision Making: Course & Med Decision Making Pertinent Labs and Imaging studies reviewed. (See chart for details) See HPI. [place] removed by nurse. Edges are approximated and healed. No redness, swelling, signs of infection or drainage. Speaks in full clear sentences. Alert and oriented x4. No tenderness to the area. [] (SITA FABIAN APRN) Dragon Disclaimer: Dragon Disclaimer: This electronic medical record was generated, in whole or in part, using a voice recognition dictation system. (SITA FABIAN APRN) Departure Departure Impression: Primary Impression: Visit for suture removal Disposition: HOME / SELF CARE / HOMELESS Condition: STABLE Referrals: UNKNOWN PCP NAME (PCP) Patient Instructions: Suture Removal Additional Instructions: You can put Neosporin over the area to help the healing. Attending Signature Attending Signature I have reviewed the PA/PROFESSIONAL DEVELOPMENT DIRECTOR's note and plan of care. I was available for consultation as needed during the patient's visit in the emergency department. I agree with the clinical impression, plan, and disposition. (DEX PADILLA DO) SITA FABIAN APRN May 30, 2021 18:12 DEX PADILLA DO May 31, 2021 06:52
== END 2021-05-30 18:13 | disposition home or self-care (01) ==
LOC: ER 16:27
DX: S01.01XD Laceration without foreign body of scalp, subsequent encounter (principal); E78.00 Pure hypercholesterolemia, unspecified; I10 Essential (primary) hypertension; G89.29 Other chronic pain; Z88.6 Allergy status to analgesic agent; Z88.8 Allergy status to other drugs, medicaments and biological substances; X58.XXXD Exposure to other specified factors, subsequent encounter
CPT/HCPCS: 99281

== ENCOUNTER 2021-09-03 14:07 | Emergency (ER) | payer MEDICARE ==
[~2021-09-03] VITALS: Ht 185.4 cm; Wt 96.0 kg
[2021-09-03 15:00] VITALS: BP 142/70
== END 2021-09-03 15:28 | disposition left against medical advice (07) ==
LOC: ER 14:07
DX: G47.00 Insomnia, unspecified (principal); Z53.21 Procedure and treatment not carried out due to patient leaving prior to being seen by health care provider

== ENCOUNTER 2021-09-05 21:01 | Emergency (ER) | payer MEDICARE ==
[~2021-09-05] VITALS: Ht 185.4 cm; Wt 68.0 kg
[2021-09-05] MEDS ORDERED: IV RINGERS,LACTATED 1000ML 1,000 ML IV ONE (21:30)
--- NOTE | 2021-09-05 21:38 | PHYS DOC ---
Past Medical History Past Medical History: Alcoholism, Anxiety, Cancer, Depression, High Valentina sterol, Hypertension, Other Additional Past Medical Histor: PTSD, MOOD DISORDER, CHRONIC PAIN, prostate ca ncer Past Surgical History: No Surgical History, Other Additional Past Surgical Histo: cardiac cath with no stent placement, TURP Smoking Status: Current Every Day Smoker Alcohol Use: Heavy Additional Information: Attempting cessation 08/2021 Drug Use: None General Adult EDM: Chief Complaint: DIZZY/LIGHT HEADED HPI: HPI: Patient is a 71 year old male with history of high blood pressure and alcoholism who presents with 3-day history of lightheadedness and feeling "foggy." Patient states that earlier today, around 1930, he was outside using the grill. He began to feel lightheaded. He took his blood pressure and it was elevated at 190s/100s. Patient presented to the emergency department 2 days ago for similar symptoms, but left without being seen due to the long wait time and full waiting room. Patient reports that typically, he drinks half pint of whiskey and two Smirnoff ice. However, in effort to be healthier and help support his , who recently lost a parent, he has stopped drinking. He states his last drink was Wednesday evening (4 days ago). Patient denies headache, generalized weakness, any recent falls, shaking/tremors/seizure-like activity, visual or auditory hallucinations, nausea or vomiting. He states he has actually been eating better than while he drank daily. Due to the events and his 's family, he reports he has felt increased stress, but he denies agitation. Review of Systems: Review of Systems: Constitutional: Denies fever, chills or generalized weakness Eyes: Denies change in visual acuity, visual field deficits or discharge HENT: Denies ear pain, nasal congestion or sore throat Respiratory: Denies cough or shortness of breath Cardiovascular: See HPI GI: See HPI : Denies dysuria or hematuria Musculoskeletal: Denies back pain or joint pain Integument: Denies rash or other skin lesion Neurologic: See HPI Heart Score: C/O Chest Pain: No Allergies: Allergies: Allergies Coded Allergies Type Severity Reaction Last Updated Verified aspirin Allergy Severe lips/face swelling 01/29/21 Yes trazodone Adverse Reaction Intermediate "hot flashes" 01/29/21 Yes Physical Exam: PE: Constitutional: Thin, no acute distress, non-toxic appearance. HENT: Normocephalic, atraumatic, bilateral external ears normal, oropharynx tacky, no oral exudates, nose normal. Eyes: PERRLA, EOMI, conjunctiva normal, no discharge. Neck: Normal range of motion, no stridor. Cardiovascular: Heart rate regular rhythm. No murmurs, rubs or gallops. Lungs & Thorax: Bilateral breath sounds clear to auscultation. Skin: Warm, dry, no erythema, no rash. Neurologic: Alert and oriented x4, steady and symmetrical gait, gross motor function 5/5 in extremities x4, cranial nerves III-XII grossly intact, no focal deficits noted, no involuntary body movements appreciated. Current Patient Data: Labs: Laboratory Tests Test 09/05/21 21:25 09/05/21 22:05 White Blood Count 9.7 x10^3/uL (4.0-11.0) Red Blood Count 4.60 x10^6/uL (4.30-5.70) Hemoglobin 12.2 g/dL (13.0-17.5) Hematocrit 36.9 % (39.0-53.0) Mean Corpuscular Volume 80 fL (79-100) Mean Corpuscular Hemoglobin 27 pg (25-35) Mean Corpuscular Hemoglobin Concent 33 g/dL (31-37) Red Cell Distribution Width 15.5 % (11.5-14.5) Platelet Count 269 x10^3/uL (140-400) Neutrophils (%) (Auto) 78 % (31-73) Lymphocytes (%) (Auto) 12 % (24-48) Monocytes (%) (Auto) 8 % (0-9) Eosinophils (%) (Auto) 2 % (0-3) Basophils (%) (Auto) 0 % (0-3) Neutrophils # (Auto) 7.6 x10^3/uL (1.8-7.7) Lymphocytes # (Auto) 1.2 x10^3/uL (1.0-4.8) Monocytes # (Auto) 0.8 x10^3/uL (0.0-1.1) Eosinophils # (Auto) 0.1 x10^3/uL (0.0-0.7) Basophils # (Auto) 0.0 x10^3/uL (0.0-0.2) Prothrombin Time 12.6 SEC (11.7-14.0) Prothromb Time International Ratio 0.9 (0.8-1.1) Activated Partial Thromboplast Time 26 SEC (24-38) Sodium Level 142 mmol/L (136-145) Potassium Level 4.0 mmol/L (3.5-5.1) Chloride Level 106 mmol/L (98-107) Carbon Dioxide Level 23 mmol/L (21-32) Anion Gap 13 (6-14) Blood Urea Nitrogen 26 mg/dL (8-26) Creatinine 1.5 mg/dL (0.7-1.3) Estimated GFR (Cockcroft-Gault) 56.0 BUN/Creatinine Ratio 17 (6-20) Glucose Level 121 mg/dL (70-99) Calcium Level 9.1 mg/dL (8.5-10.1) Total Bilirubin 0.4 mg/dL (0.2-1.0) Aspartate Amino Transf (AST/SGOT) 27 U/L (15-37) Alanine Aminotransferase (ALT/SGPT) 40 U/L (16-63) Alkaline Phosphatase 90 U/L (46-116) Troponin I High Sensitivity 6 ng/L (4-75) Total Protein 8.0 g/dL (6.4-8.2) Albumin 4.1 g/dL (3.4-5.0) Albumin/Globulin Ratio 1.1 (1.0-1.7) Lipase 421 U/L (73-393) Ethyl Alcohol Level < 10 mg/dL (0-10) Urine Collection Type Unknown Urine Color Yellow Urine Clarity Clear Urine pH 5.5 (<5.0-8.0) Urine Specific [place] 1.010 (1.000-1.030) Urine Protein Negative mg/dL (NEG-TRACE) Urine Glucose (UA) Negative mg/dL (NEG) Urine Ketones (Stick) Negative mg/dL (NEG) Urine Blood Negative (NEG) Urine Nitrite Negative (NEG) Urine Bilirubin Negative (NEG) Urine Urobilinogen Dipstick 0.2 mg/dL (0.2 mg/dL) Urine Leukocyte Esterase Negative (NEG) Urine RBC 0 /HPF (0-2) Urine WBC Rare /HPF (0-4) Urine Squamous Epithelial Cells Occ /LPF Urine Bacteria 0 /HPF (0-FEW) Urine Mucus Slight /LPF Urine Opiates Screen Neg (NEG) Urine Methadone Screen Neg (NEG) Urine Barbiturates Neg (NEG) Urine Phencyclidine Screen Neg (NEG) Urine Amphetamine/Methamphetamine Neg (NEG) Urine Benzodiazepines Screen Neg (NEG) Urine Cocaine Screen Neg (NEG) Urine Cannabinoids Screen Neg (NEG) Urine Ethyl Alcohol Neg (NEG) Vital Signs: Vital Signs Date Time Temp Pulse Resp B/P (MAP) Pulse Ox O2 Delivery O2 Flow Rate FiO2 09/05/21 23:40 61 18 161/82 (108) 100 Room Air 09/05/21 21:05 98.0 103 20 186/90 (122) 96 Room Air 98.0 EKG: EKG: EKG Interpreted by Dr. Chakraborty at 2215: Regular rate and rhythm 63 bpm bpm with no ectopic beats. QT 406 ms/QTc [address] ms. Inferior lead anatomical ST segment changes with T wave inversion. No STEMI. Largely unchanged from EKG dated with exception of heart rate being 80 bpm on comparison. Radiology/Procedures: Radiology/Procedures: PROCEDURE: CHEST AP ONLY EXAMINATION: Chest radiograph. VIEWS: 1 COMPARISON: Lightheadedness INDICATION:71 years, Male, 12/21/2015. FINDINGS: Normal cardiomediastinal silhouette. Similar innumerable bilateral calcified granulomas. No focal consolidation. No pleural effusion or pneumothorax. No acute osseous process. IMPRESSION: No acute cardiopulmonary process. Electronically signed by: Cherelle Ramos MD (09/05/2021 10:09 PM) [facility] Course & Med Decision Making: Course & Med Decision Making Pertinent Labs and Imaging studies reviewed. (See chart for details) Patient is a 71-year-old male with history of alcoholism, HTN, HLD and a current smoker who presents with lightheadedness for the past 3 days. Patient states he stopped drinking alcohol 4 days ago. Since that time he has no concerning symptoms for alcohol withdrawal. Work-up today will include labs (including troponin and blood alcohol level), EKG, chest x-ray, urinalysis, UDS. Patient provided with a liter of IV fluids, thiamine IV and vitamin containing folate. On reevaluation, patient is feeling better and his blood pressure has continued to improve. EKG did show some nonspecific ST segment changes, however it is unchanged from EKG done in 2017. Patient is instructed to follow-up with cardiology on an outpatient basis as soon as he is able. He is also advised to keep his appointments with his psychiatric supportive care as well as his primary care doctor next month. Patient given p.o. vitamin supplementation instruction, return precautions. Patient understands and is agreeable to discharge plan. Sunny Disclaimer: Sunny Disclaimer: This electronic medical record was generated, in whole or in part, using a voice recognition dictation system. Departure Departure Impression: Primary Impression: HTN (hypertension) Qualified Codes: I10 - Essential (primary) hypertension Additional Impressions: History of alcoholism Intermittent lightheadedness Disposition: HOME / SELF CARE / HOMELESS Condition: IMPROVED Referrals: NO PCP (PCP) Patient Instructions: Alcohol Withdrawal, [id number], DASH Diet, Iron-Rich Diet Additional Instructions: EMERGENCY DEPARTMENT GENERAL DISCHARGE INSTRUCTIONS Thank you for coming to [facility] Emergency Department (ED) today and trusting us with you care. We trust that you had a positive experience in our Emergency Department. If you wish to speak to the department management, you may call the director at . YOUR FOLLOW UP INSTRUCTIONS ARE FOLLOWS: 1. Follow up with your primary care doctor and a export freight specialist (gel coater). If you do not have a primary doctor, please ask for a resource list of physicians or clinics that may be able to assist you with follow up care. 2. The emergency provider has interpreted your imaging studies, if any were ordered. The radiology medical logistics specialist also reviewed them. If there is a change in the findings, you will be notified in 48 hours when at all possible. 3. If a lab test or culture has been done, your results will be reviewed and you will be notified if you need a change in treatment. 4. Follow instructions verbalized to you and refer to the printouts if needed. Begin taking vitamin B-1 (thiamine) supplement as well as a daily vitamin containing folate (example: vitamins). ADDITIONAL INSTRUCTIONS AND INFORMATION: 1. Your care today has been supervised by a physician who is specially trained in emergency care. Many problems require more than one evaluation for a com plete diagnosis and treatment. We recommend that you schedule your follow up appointment as recommended to ensure complete treatment of you illness or injury. If you are unable to obtain follow up care and continue to have a problem, or if your condition worsens, we recommend that you return to the ED. 2. We are not able to safely determine your condition over the phone nor are we able to give sound medical advice over the phone. For these safety reasons, if you call for medical advice we will ask you to come to the ED for further evaluation. 3. If you have any questions regarding these discharge instructions please call the ED at . SAFETY INFORMATION: In the interest of safety, wellness, and injury prevention; we encourage you to wear your seat belt, if you smoke; quite smoking, and we encourage family to use a protective helmet for bicycling and other sporting events that present an increased risk for head injury. IF YOUR SYMPTOMS WORSEN OR NEW SYMPTOMS DEVELOP, OR YOU HAVE CONCERNS ABOUT YOUR CONDITION; OR IF YOUR CONDITION WORSENS WHILE YOU ARE WAITING FOR YOUR FOLLOW UP APPOINTMENT; EITHER CONTACT YOUR PRIMARY CARE DOCTOR, THE PHYSICIAN WHOSE NAME AND NUMBER YOU WERE GIVEN, OR RETURN TO THE ED IMMEDIATELY. BRIEN LINARES Sep 05, 2021 21:38
[2021-09-05 21:47] LABS: BASO % 0 % (0-3); EOS # 0.1 x10^3/uL (0.0-0.7); EOS % 2 % (0-3); HEMATOCRIT 36.9 % (39.0-53.0); HEMOGLOBIN 12.2 g/dL (13.0-17.5); LYMPH # 1.2 x10^3/uL (1.0-4.8); LYMPH % 12 % (24-48); MEAN CORPUSCULAR HEMOGLOBIN 27 pg (25-35); MEAN CORPUSCULAR HGB CONC 33 g/dL (31-37); MEAN CORPUSCULAR VOLUME 80 fL (79-100); MONO # 0.8 x10^3/uL (0.0-1.1); MONO % 8 % (0-9); NEUT # 7.6 x10^3/uL (1.8-7.7); NEUT % 78 % (31-73); PLATELET COUNT 269 x10^3/uL (140-400); RED CELL DISTRIBUTION WIDTH 15.5 % (11.5-14.5); WHITE BLOOD COUNT 9.7 x10^3/uL (4.0-11.0)
[2021-09-05 21:54] LABS: CALCIUM 9.1 mg/dL (8.5-10.1); CREATININE 1.5 mg/dL (0.7-1.3)
[2021-09-05 21:55] LABS: PROTHROMBIN TIME PATIENT 12.6 SEC (11.7-14.0)
[2021-09-05 22:00] LABS: ALBUMIN 4.1 g/dL (3.4-5.0); ALBUMIN/GLOBULIN RATIO 1.1 (1.0-1.7); TOTAL BILIRUBIN 0.4 mg/dL (0.2-1.0)
[2021-09-05] MEDS ORDERED: THIAMINE INJ 500 MG in IV DEXTROSE 5% 50 ML IV ONE (22:00)
[2021-09-05] MEDS ORDERED: PRENATAL MULTIVITAMIN TABLET. PO ONE (22:00)
--- NOTE | 2021-09-05 22:11 | RAD ---
EXAMINATION: Chest radiograph. VIEWS: 1 COMPARISON: Lightheadedness INDICATION:71 years, Male, 12/21/2015. FINDINGS: Normal cardiomediastinal silhouette. Similar innumerable bilateral calcified granulomas. No focal con solidation. No pleural effusion or pneumothorax. No acute osseous process. IMPRESSION: No acute cardiopulmonary process. Electronically signed by: Cherelle Ramos MD (09/05/2021 10:09 PM) [facility]
[2021-09-05 22:28] LABS: BILIRUBIN,URINE NEGATIVE (NEG); CLARITY,URINE CLEAR; COLOR,URINE YELLOW; NITRITE,URINE NEGATIVE (NEG); PH,URINE 5.5 (<5.0-8.0); PROTEIN,URINE NEGATIVE (NEG-TRACE); UROBILINOGEN,URINE 0.2 mg/dL (0.2 mg/dL)
[2021-09-05 22:35] LABS: BARBITURATES NEG (NEG); BENZODIAZEPINES NEG (NEG); CANNABINOIDS NEG (NEG); COCAINE NEG (NEG); METHADONE NEG (NEG); OPIATES NEG (NEG); PHENCYCLIDINE NEG (NEG)
[2021-09-05 22:36] LABS: BACTERIA,URINE 0 /HPF (0-FEW); RBC,URINE 0 /HPF (0-2); WBC,URINE RARE /HPF (0-4)
[2021-09-05 22:37] LABS: AMPHETAMINE/METHAMPHETAMINE NEG (NEG)
--- NOTE | 2021-09-05 22:56 | EKG ---
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
[2021-09-05 23:40] VITALS: BP 161/82
== END 2021-09-05 23:45 | disposition home or self-care (01) ==
LOC: ER 21:01
DX: I10 Essential (primary) hypertension (principal); R42 Dizziness and giddiness; E78.00 Pure hypercholesterolemia, unspecified; F41.9 Anxiety disorder, unspecified; F32.9 Major depressive disorder, single episode, unspecified; G89.29 Other chronic pain; F17.200 Nicotine dependence, unspecified, uncomplicated; Z95.5 Presence of coronary angioplasty implant and graft; Z88.6 Allergy status to analgesic agent; Z88.8 Allergy status to other drugs, medicaments and biological substances; F10.20 Alcohol dependence, uncomplicated; Y90.0 Blood alcohol level of less than 20 mg/100 ml
CPT/HCPCS: 36415; 71045; 80053; 80307; 81001; 83690; 84484; 85025; 85610; 85730; 93005; 96365; 99284; G0480; J3411; J7060; J7120